=== PATIENT | female | born 1955 | race Caucasian/White ===

== ENCOUNTER 2019-09-19 06:58 | Day surgery (SDC) | payer OTHER ==
--- NOTE | 2019-09-16 11:23 | RAD REPORT ---
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 COMPARISON: CHEST SINGLE VIEW dated 11/08/2015; CHEST SINGLE VIEW dated 02/12/2011 FINDINGS: Small calcified granuloma is present in the left upper lobe laterally. The lungs are emphy sematous. The heart is upper limit of normal in size. No displaced fractures. IMPRESSION: Mild COPD.
[2019-09-16 11:35] LABS: Absolute Lymphocytes (CBC) 1.1 K/uL (0.7-4.9); Basophils % 0.5 % (0-1.3); Hematocrit 36.9 % (36.0-45.0); Lymphocytes % 11.7 % (15.3-44.8); RBC Red Blood Cell Count 3.78 M/uL (3.86-4.86)
[2019-09-16 11:40] LABS: Potassium 4.7 mmol/L (3.5-5.1)
[2019-09-16 11:54] LABS: Protime INR 0.85
--- OUTSIDE RECORDS SUMMARY | 2019-09-19 07:00 | XMS REPORT ---
:1955 [facility] Address [address] [place] [address] Dr. Gomez [address] [place] [id number] Care Team Providers Name Role Phone Unavailable Unavailable Unavailable Problems This patient has no known problems. Allergies, Adverse Reactions, Alerts This patient has no known allergies or adverse reactions. Medications This patient has no known medications.
[2019-09-19] MEDS ORDERED: HEPA 1000U/500MLS 2,000 UNIT/1,000 ML BAG IV ONE (07:07)
[2019-09-19] MEDS ORDERED: LIDOCAINE 1% MPF 30 ML VIAL ONE (07:07)
[2019-09-19] MEDS ORDERED: NA CHLORIDE 0.9% 500 ML ONE (07:21)
[2019-09-19] MEDS ORDERED: MIDAZOLAM HCL 2 MG/2 ML INJ ONE ×3 (07:51→08:14)
[2019-09-19] MEDS ORDERED: HEPARIN 5000 UNIT/ML 1 ML VIAL ONE (07:51)
[2019-09-19] MEDS ORDERED: NITROGLYCERIN/D5W 25 MG/250 ML BTL IV ONE (07:52)
[2019-09-19] MEDS ORDERED: NA CHLORIDE 0.9% 0 ML ONE (07:52)
[2019-09-19] MEDS ORDERED: NITROGLYCERIN 100 MCG/ML SYR (for cath lab use only) IV ONE (07:52)
[2019-09-19] MEDS ORDERED: NICARDIPINE HCL 25 MG/10 ML IV ONE (07:52)
[2019-09-19] MEDS ORDERED: FENTANYL CITR 100 MCG/2 ML ONE (07:52)
[2019-09-19] MEDS ORDERED: ATROPINE SULF 1 MG/10 ML SYR IV ONE (07:52)
--- NOTE | 2019-09-19 09:59 | OP ---
Surgeon: Vinnie Corbin MD Procedures: Left heart catheterization with coronary left ventricular angiography. Indication: History of right coronary stent with ischemia of the inferior wall on a stress test. 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 There is HEATHER grade 3 collateral flow that comes from the left coronary, several different places, both obtuse marginal, di agonal, the LAD, all 3 of them gave collaterals to the right. Her left ventricular ejection fraction is normal. Her left ventricular end-diastolic pressure was 17 slightly elevated and her systolic bl ood pressure at the end of the case was 153, so she has systolic hypertension. Our plan is for medic al therapy and smoking cessation. Procedure In Detail: The patient was brought to the cardiac laborer operator in a fasting state, sedated wit h Versed and fentanyl. Prepared and draped in usual sterile fashion. Right radial approach was used . Tissues around the right radial artery were anesthetized with 1% lidocaine. The artery was then e ntered using a 21-gauge needle, cannulated with a 0.021 inch diameter guidewire. Modified Seldinger technique was then used to place a 5/6-[place] Terumo radial sheath. The introducer and wire removed and the sheath was flushed. Radial cocktail was given consisting of nicardipine, heparin, nitroglyce rin. We guided a TIG catheter into the ascending aorta using fluoroscopy and a short radius J-tip Gl idewire, used a TIG catheter to angiogram left ventricle, left coronary, right coronary. At the end of the procedure, the catheter was removed with a guidewire straight in and out. The sheath was removed and the arteriotomy was closed with a TR band. MARY/TIARA Voice ID: [id number] Report ID: [id number]
[2019-09-19 10:32] VITALS: TEMP 98
[2019-09-19 10:52] VITALS: O2SAT 96
[2019-09-19 11:35] VITALS: BP 142/76
== END 2019-09-19 11:25 | disposition home or self-care (01) ==
LOC: CCL 06:58
PROVIDERS: ATTEND Internal Medicine
DX: I25.118 Atherosclerotic heart disease of native coronary artery with other forms of angina pectoris (principal); I25.82 Chronic total occlusion of coronary artery; I65.23 Occlusion and stenosis of bilateral carotid arteries; I10 Essential (primary) hypertension; E78.5 Hyperlipidemia, unspecified; E11.9 Type 2 diabetes mellitus without complications; Z95.5 Presence of coronary angioplasty implant and graft; Z79.02 Long term (current) use of antithrombotics/antiplatelets; F17.200 Nicotine dependence, unspecified, uncomplicated; Z88.6 Allergy status to analgesic agent; Z91.040 Latex allergy status; Z85.44 Personal history of malignant neoplasm of other female genital organs; Z90.710 Acquired absence of both cervix and uterus
CPT/HCPCS: 85025; 80048; 36415; 85610; 82947; 85730; 71046; 93458; C1893; J1644; J2250 ×2; J3010; J7040; J0583

== ENCOUNTER 2022-05-20 02:41 | Emergency (ER) | payer OTHER ==
--- OUTSIDE RECORDS SUMMARY | 2022-05-20 02:46 | XMS REPORT | Continuity of Care Document ---
:1955 Author Organization [facility] t Address [address] [place] [address] Care Team Providers Name Role Phone Ayad Davila Primary Care Physician Nicol Kauffman MD Attending Clinician Doctor Unassigned, [place] Attending Clinician Unavailable Kerrie Frausto PA-C Attending Clinician CLARKE BARAHONA Attending Clinician Unavailable KATRIN PAULINO Admitting Clinician Unavailable Payers Payer Name Policy Type Policy Number Effective Date Expiration Date S ource Problems Condition Condition Condition Status Onset Resolution Last Treating Co mments Source Name Details Category Date Date Treatment Clinician Date Positive Positive Disease Active Overview: Un ella colorectal colorectal 8-10 Formattin ity of cancer cancer 00:00: g of this [place] screening screening 00 note Medi taran using using might be Branch Cologuard Cologuard different test test from the original. Added automatic ally from request for surgery [id number] Problem Problem Disease Active Univers 3-29 ity of 00:00: [place] 00 Medical Branch PAD PAD Disease Active Univers (periphera (periphera 4-01 it y of l artery l artery 00:00: [place] disease) disease) 00 Medica l Branch Radial Radial Disease Active [facility]04 [facility] thrombosis thrombosis 00:00: Me dical 00 Center CKD CKD Disease Active [facility] (chronic (chronic 2-04 [facility] kidney kidney 00:00: Medical disease) disease) 00 Center stage 3, stage 3, GFR 30-59 GFR 30-59 ml/min ml/min Obesity Obesity Disease Active Univers 1-25 ity of 00:00: [place] [facility] Hyperlipem Hyperlipem Disease Active U nivers ia ia 1- ity of 00:00: [place] [facility] History of History of Disease Active U nivers SCC SCC 1-25 ity of (squamous (squamous 00:[place] cell cell 00 Medical carcinoma) carcinoma) Br anch of skin of skin Lung Lung Disease Active Univers nodules nodules 11-19 ity of 00:00: [place] [facility] 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 00:00[place] vagina of vagina 00 [facility] Branch Tobacco Tobacco Disease Active Univers use use 11-21 ity of disorder disorder 00:00: [place] [facility] Lump or Lump or Disease Active Univers mass in mass in 11-21 ity of breast breast 00:00: [place] [facility] Stroke Stroke Disease Active Univers 3 ity of 00:00: [place] [facility] Essential Essential Disease Active Uni vers hypertensi hypertensi 11-21 it y of on, benign [place], benign [place] [facility] Type 2 Type 2 Disease Active Univers diabetes diabetes 11-21 ity of mellitus mellitus 00:00: [place] 00 [facility] Status Status Disease Active Univers post post 01-22 ity of carotid carotid 00:00: [place] endarterec endarterec 00 Me dical bob bob Branch 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 00:00: [place] 00 Medical Branch DM type 2 DM type 2 Disease Active Uni vers causing causing 01-19 ity of neurologic neurologic 00:[place] disease al disease 00 Me dical Branch 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 01-19 ity of hemiparesi hemiparesi 00:00[place] Branch Carotid Carotid Disease Active Univers artery artery 01-17 ity of occlusion occlusion 00:[place] with with 00 Medical cerebral cerebral Branch infarction infarction Carotid Carotid Disease Active Univers occlusion, occlusion, 5-27 it y of left left 00:00: [place] 00 Medical Branch Carotid Carotid Disease Active Univers stenosis, stenosis, 5-27 ity of right right 00:00: [place] 00 Medical Branch Allergies, Adverse Reactions, Alerts Allergy Allergy Status Severity Reaction(s) Onset Inactive Treating Comm ents Source Name Type Date Date Clinician CODEINE Allergy Active Hives 2019-[address] [facility] 00:[facility]: Medical 00 Center LATEX Allergy Active Hives 2019-[address] [facility] 00:[facility]: Medical 00 Center Codeine Propensi Active Hives 2020-[address] [facility] ty to 2-04 [facility] adverse 00:00: Medical reaction 00 Center s Latex Propensi Active Hives 2019-[address] [facility] ty to 2-04 [facility] adverse 00:00: Medical reaction 00 Center s Codeine Propensi Active Unknown - Univ ers ty to See comments 06 ity of adverse 00:00: [place] reaction 00 Medical s Branch Latex Propensi Active Rash Univers ty to 4-12 ity of adverse 00:00: [place] reaction 00 Medical s to Branch drug Hydrocod Propensi Active Itching Unive rs one ty to 5-27 ity of adverse 00:00: [place] reaction 00 Medical s Branch Hydrocod Propensi Active Itching 0 Unive rs one-Acet ty to 5-27 ity of aminophe adverse 00:00: [place] n reaction 00 Medical s Branch Social History Social Habit Start Date Stop Date Quantity Comments Source History of tobacco Cigarette Smoker University of use [facility] Exposure to 2022-04-29 2022-05-09 Not sure University of SARS-CoV-2 (event) 00:00:00 09:59:00 [facility] Tobacco use and 2022-03-31 2022-03-31 Smokeless Universit y of exposure 00:00:00 00:00:00 tobacco non-user [facility] dical Branch Cigarettes smoked 2022-03-31 2022-03-31 Univers ity of current (pack per 00:00:00 00:00:00 [place] ) - Reported Branch Cigarette 2022-03-31 2022-03-31 University of pack-years 00:00:00 00:00:00 [facility] Alcohol intake 2019-09-27 2019-09-27 [facility]:00 of [facility] (finding) Sex [birth year] HORTENCIA [place] 00:00:00 00:00:00 [facility] Smoking Status Start Date Stop Date Source Smokes tobacco daily 2022-03-31 00:00:00 Univers ity of [place] [facility] Medications Ordered Filled Start Stop Current Ordering Indication Dosage Frequency Signature Comments Components Source Medication Medication Date Date Medication? Clinician (SIG) Name Name Nitrofurant 2021- Yes [id number] 100mg Take 1 Univers oin&Nit. 9-12 05-25 capsule by ity of Macroc[place] 00:00: 04:59 [place] (MACROBID) 00 :00 the Medical 100 mg morning Branch capsule and 1 capsule in the evening. Do all this for 5 days. estradioL Yes [id number] Apply 1g Univers (ESTRACE) 9-16 vaginally ity o f 0.01 % (0.1 00:00: at bedtime [place] mg/gram) 00 3 times Medical vaginal per week Branch cream ( dn/ ida) mirabegron Yes [id number] 25mg Take 1 Univers (MYRBETRIQ) 9-16 tablet by ity of 25 mg 00:00: mouth in [place] tablet 00 the Medical morning. Branch estradioL Yes [id number] Apply 1g Univers (ESTRACE) 9-16 vaginally ity o f 0.01 % (0.1 00:00: at bedtime [place] mg/gram) 00 3 times Medical vaginal per week Branch cream ( dn/ iday) mirabegron Yes [id number] 25mg Take 1 Univers (MYRBETRIQ) 9-16 tablet by ity of 25 mg 00:00: mouth in [place] tablet 00 the Medical morning. Branch estradioL Yes [id number] Apply 1g Univers (ESTRACE) 6-17 vaginally ity o f 0.01 % (0.1 00:00: at bedtime [place] mg/gram) 00 every Medical vaginal night for Branch cream 2 weeks and then apply 1g vaginally at bedtime 3 times per week ( dn/ iday) mirabegron Yes [id number] 25mg Take 1 U nivers (MYRBETRIQ) 6-17 tablet by ity of 25 mg 00:00: mouth at [place] tablet 00 bedtime. Medical Branch estradioL Yes [id number] Apply 1g Univers (ESTRACE) 6-17 vaginally ity o f 0.01 % (0.1 00:00: at bedtime [place] mg/gram) 00 every Medical vaginal night for Branch cream 2 weeks and then apply 1g vaginally at bedtime 3 times per week (Thursday//) mirabegron Yes [id number] 25mg Take 1 U nivers (MYRBETRIQ) 6-17 tablet by ity of 25 mg 00:00: mouth at [place] tablet 00 bedtime. Medical Branch mirabegron Yes [id number] 25mg Take 1 U nivers (MYRBETRIQ) 5-16 tablet by ity of 25 mg 00:00: mouth at [place] tablet 00 bedtime. Medical Branch mirabegron Yes [id number] 25mg Take 1 U nivers (MYRBETRIQ) 5-16 tablet by ity of 25 mg 00:00: mouth at [place] tablet 00 bedtime. Medical Branch ezetimibe-s Yes 1{tbl} Take 1 Un ella imvastatin 4-12 tablet by ity of 10-40 10-40 14:08: mouth [place] mg tablet 08 every Medical evening. Branch ezetimibe-s Yes 1{tbl} Take 1 Un ella imvastatin 4-12 tablet by ity of 10-40 10-40 14:08: mouth [place] mg tablet 08 every Medical evening. Branch Potassium Yes 1{tbl} Take 1 Univ ers Gluconate 3-25 tablet by ity o f 2.5 mEq Tab 13:42: mouth. [facility] 57 [facility] Potassium Yes 1{tbl} Take 1 Univ ers Gluconate 3-25 tablet by ity o f 2.5 mEq Tab 13:42: mouth. [facility] s 57 [facility] albuterol Yes INHALE 2 Univ ers 90 3-02 PUFFS ity of mcg/actuati 00:00: EVERY 4 Rick as on inhaler 00 HOURS Medical Branch albuterol Yes INHALE 2 Univ ers 90 3-02 PUFFS ity of mcg/actuati 00:00: EVERY 4 [place] as on inhaler 00 HOURS Medical Branch clopidogreL Yes 75mg Take 75 mg Univers 75 mg 2-02 by mouth ity of tablet 14:21: daily. [place] [facility] clopidogreL Yes 75mg Take 75 mg Univers 75 mg 2-02 by mouth ity of tablet 14:21: daily. [place] [facility] POTASSIUM Yes Take by Unive rs ORAL 2-02 mouth. ity of 14:12: [place] [facility] POTASSIUM Yes Take by Unive rs ORAL 2-02 mouth. ity of 14:12: [place] [address] Medical Branch BD INSULIN Yes USE UNDER Un ella PEN NEEDLE 1-14 THE SKIN ity o f UF 31 gauge 00:00: ONCE DAILY [place] x Medical Ndle Branch BD INSULIN Yes USE UNDER Un ella PEN NEEDLE 1-14 THE SKIN ity o f UF 31 gauge 00:00: ONCE DAILY [place] x Medical Ndle Branch citalopram 2019- Yes 10mg Take 10 mg U nivers 10 mg 2-28 by mouth ity of tablet 00:00: daily. [place] [facility] citalopram 2019- Yes 10mg Take 10 mg U nivers 10 mg 2-28 by mouth ity of tablet 00:00: daily. [place] [facility] isosorbide 2019- Yes 30mg Take 30 mg U nivers mononitrate 2-21 by mouth ity of 30 mg 24 hr 00:00: every [place] tablet 00 morning. Medical Branch isosorbide 2019- Yes 30mg Take 30 mg U nivers mononitrate 2-21 by mouth ity of 30 mg 24 hr 00:00: every [place] tablet 00 morning. Medical Branch aspirin 2019-0 Yes 81mg Take 81 mg Univ ers (ADULT LOW 9-17 by mouth ity o f DOSE 10:44: daily. [place] ASPIRIN) 81 07 Medical mg EC Branch tablet aspirin 2019-0 Yes 81mg Take 81 mg Univ ers (ADULT LOW 9-17 by mouth ity o f DOSE 10:44: daily. [place] ASPIRIN) 81 07 Medical mg EC Branch tablet ezetimibe 2020-0 Yes 10mg Take 10 mg Un ella (ZETIA) 10 4-01 by mouth ity o f mg tablet 09:30: daily. [place] [address] Medical Branch lisinopril 2020-0 Yes 20mg Take 20 mg U nivers (PRINIVIL,Z 4-01 by mouth ity of ESTRIL) 20 09:30: daily. [place] mg tablet 29 Medical Branch insulin 2020-0 Yes 23U inject 23 Unive rs glargine 4-01 Units ity of (LANTUS 09:30: under the [place] U-100) 100 29 skin at Medica l unit/mL bedtime. Branch injection atorvastati 2020-0 Yes 40mg Take 40 mg Univers n 40 mg 4-01 by mouth ity of tablet 09:30: at [place] 29 bedtime. Medical Branch ezetimibe 2020-0 Yes 10mg Take 10 mg Un ella (ZETIA) 10 4-01 by mouth ity o f mg tablet 09:30: daily. [place] [address] Medical Branch lisinopril 2020-0 Yes 20mg Take 20 mg U nivers (PRINIVIL,Z 4-01 by mouth ity of ESTRIL) 20 09:30: daily. [place] mg tablet 29 Medical Branch insulin 2020-0 Yes 23U inject 23 Unive rs glargine 4-01 Units ity of (LANTUS 09:30: under the [place] U-100) 100 29 skin at Medica l unit/mL bedtime. Branch injection atorvastati 2020-0 Yes 40mg Take 40 mg Univers n 40 mg 4-01 by mouth ity of tablet 09:30: at [place] [address] bedtime. Medical Branch ALPRAZolam 2020-0 Yes .5mg Q.[id number] Take 0.[address] [facility] (XANAX) 0.5 2-06 [id number] mg by L ukes MG tablet 14:49: 3D mouth 3 Medic al 44 (three) Center times daily . atorvastati 2020-0 Yes 40mg QD Take [address] [facility] n (LIPITOR) 2-06 by mouth Luke s 40 MG 14:49: daily. Medical tablet 44 Center insulin 2020-0 Yes 30U QD Inject 30 [facility] t glargine 2-06 Units [facility]ukes (LANTUS) 14:49: subcutaneo Med ical 100 unit/mL 44 usly Center injection nightly Use as directed . lisinopril 2020-0 Yes 20mg QD Take [address] (PRINIVIL,Z 2-06 by mouth Luke s ESTRIL) 20 14:49: daily. Medic al MG tablet 44 Center magnesium 2020-0 Yes 400mg Q.5D Take [address] oxide 2-06 mg by [facility] (MAG-OX) 14:49: mouth 2 Medica l 400 mg 44 (two) Center (241.3 mg times magnesium) daily . tablet ezetimibe 2020-0 Yes 10mg QD Take [address] (ZETIA) 10 2-06 by mouth [facility] mg tablet 14:49: daily. Medica l 44 Center budesonide- 2020-0 Yes 2{puff} Q.5D Inhale [address] formoterol 2-06 puffs by [facility] (SYMBICORT) 14:49: mouth via M edical 160-4.5 44 inhaler 2 Center mcg/actuati (two) on inhaler times daily. potassium 2020-0 Yes 1{tbl} QD Take [address] gluconate 2-06 tablet by [facility] 595 mg (99 14:49: mouth Medica l mg) Tab 44 daily. Center albuterol 2020-0 Yes 2{puff} Inhale [address] HFA 2-06 puffs by [facility] (VENTOLIN 14:49: mouth via Med ical HFA) 90 44 inhaler Center mcg/actuati every 6 on inhaler (six) hours as needed for Wheezing. cholecalcif 2020-0 Yes 1000U Take 1,[address] [facility] carol 2-06 Units by [facility] (VITAMIN 14:49: mouth Medical D3) 25 mcg 44 every 3 Center (1,000 (three) unit) days. tablet VITAMIN B 2018-08 Yes Take by [facility] rs COMPLEX VIT 2-20 mouth. ity of C NO.4 09:56: [place] ([facility] B 47 Medical COMPLEX + C Branch ORAL) ubidecareno 2018-08 Yes Take by [facility] vers ne (CO Q-10 2-20 mouth. ity of ORAL) 09:56: [place] [address] Medical Branch neomycin-po 2018- Yes .5[in_u 0.5 Inches Univers lymyxin-dex 2-20 s] 4 (four) ity of amethasone 09:56: times [place] (MAXITROL) 47 daily. Medical 3.5-10,000- Branch 0.1 mg-unit/g-% ophthalmic ointment magnesium 2018-08 Yes Take by Unive rs oxide 400 2-20 mouth. ity of mg capsule 09:56: [address] cholecalcif 2018-08 Yes 1000U Take 1,000 Univers carol, 2-20 Units by ity of vitamin D3, 09:56: mouth [place] 1,000 unit 47 daily. Medical tablet Branch KRILL OIL 2018-08 Yes 300mg Take 300 Uni vers ORAL 2-20 mg by ity of 09:56: mouth. [address] Branch VITAMIN B 2018- Yes Take by Unive rs COMPLEX VIT 2-20 mouth. ity of C NO.4 09:56: [place] ([facility] B Medical COMPLEX + C Branch ORAL) ubidecareno 2018-08 Yes Take by Uni vers ne (CO Q-10 2-20 mouth. ity of ORAL) 09:56: [address] neomycin-po 2018-08 Yes .5[in_u 0.5 Inches Univers lymyxin-dex 2-20 s] 4 (four) ity of amethasone 09:56: times [place] (MAXITROL) 47 daily. Medical 3.5-10,000- Branch 0.1 mg-unit/g-% ophthalmic ointment magnesium 2018-08 Yes Take by Unive rs oxide 400 2-20 mouth. ity of mg capsule 09:56: [address] cholecalcif 2018-08 Yes 1000U Take 1,000 Univers carol, 2-20 Units by ity of vitamin D3, 09:56: mouth [place] 1,000 unit 47 daily. Medical tablet Branch KRILL OIL 2018-08 Yes 300mg Take 300 Uni vers ORAL 2-20 mg by ity of 09:56: mouth. [address] ALPRAZolam 2018-08 Yes .5mg Take 0.5 Uni vers (XANAX) 0.5 2-20 mg by ity of mg tablet 09:56: mouth 3 [place] [address] (three) Medical times [place] daily as needed for Other (anxiety). ALPRAZolam 2018-08 Yes .5mg Take 0.5 Uni vers (XANAX) 0.5 2-20 mg by ity of mg tablet 09:56: mouth 3 [place] 46 (three) Medical times Branch daily as needed for Other (anxiety). traMADoL-ac Yes Q4H PRN Uni vers etaminophen 1-17 For Pain ity of 37.5-325 mg 00:00: [place] per tablet 00 Medical Branch ciprofloxac Yes TWICE Unive rs in HCl 1-17 DAILY ity of (CIPRO) 500 00:00: [place] mg tablet 00 Medical Branch dextrose 10 Yes DAILY Unive rs % in water 1-17 ity of (D10W 0.9% 00:00: [place] NACL, NS,) 00 Medical IV infusion Branch traMADoL-ac Yes Q4H PRN Uni vers etaminophen 1-17 For Pain ity of 37.5-325 mg 00:00: [place] per tablet 00 Medical Branch dextrose 10 Yes DAILY Unive rs % in water 1-17 ity of (D10W 0.9% 00:00: [place] NACL, NS,) 00 Medical IV infusion Branch ciprofloxac 2021- No TWICE Univ ers in HCl 1-17 -19 DAILY ity of (CIPRO) 500 00:00: 00:00 [place] mg tablet 00 :00 Medical Branch budesonide- Yes 2{puff} Inhale 2 Univers formoteroL 1-16 Puffs. ity of 160-4.5 00:00: [place] mcg/actuati 00 Medical on inhaler Branch metFORMIN Yes TWICE Univers 1,000 mg 1-16 DAILY ity of tablet 00:00: [place] 00 Medical Branch varenicline Yes .5{tbl} 0.5 Uni vers 1 mg tablet 1-16 tablets. ity of 00:00: [place] 00 Medical Branch MULTIVITAMI Yes DAILY Unive rs N ORAL 1-16 ity of 00:00: [place] 00 Medical Branch krill-omega Yes DAILY Unive rs -3-dha-epa- -16 ity of lipids 00:00: [place] 300-90-24-5 00 Medical 0 mg Cap Branch ferrous Yes DAILY Univers fumarate/vi 1-16 ity of t C/vit B1 00:00: [place] (FERROUS 00 Medical FUMARATE- Branch T B1-VIT C ORAL) ALBUTEROL Yes EVERY 6 Unive rs SULFATE 1-16 HOURS ity of INHALE 00:00: NEEDED PRN For short Medical of breath Branch budesonide- Yes 2{puff} Inhale 2 Univers formoteroL 1-16 Puffs. ity of 160-4.5 00:00: [place] mcg/actuati 00 Medical on inhaler Branch metFORMIN Yes TWICE Univers 1,000 mg 1-16 DAILY ity of tablet 00:00: [place] 00 Medical Branch varenicline Yes .5{tbl} 0.5 Uni vers 1 mg tablet 1-16 tablets. ity of 00:00: [place] 00 Medical Branch MULTIVITAMI Yes DAILY Unive rs N ORAL 1-16 ity of 00:00: [place] 00 Medical Branch krill-omega Yes DAILY Unive rs -3-dha-epa- 1-16 ity of lipids 00:00: [place] 300-90-24-5 00 Medical 0 mg Cap Branch ferrous Yes DAILY Univers fumarate/vi 1-16 ity of t C/vit B1 00:00: [place] (FERROUS 00 Medical FUMARATE- Branch T B1-VIT C ORAL) ALBUTEROL Yes EVERY 6 Unive rs SULFATE 1-16 HOURS ity of INHALE 00:00: NEEDED PRN For short Medical of breath Branch Immunizations Ordered Filled Immunization Date Status Comments [facility] e Immunization Name Name SARS-COV-2 COVID-19 2021-07-23 Completed Unive rsity of PFIZER VACCINE 00:00:00 [facility] SARS-COV-2 COVID-19 2021-07-23 Completed Unive rsity of PFIZER VACCINE 00:00:00 [facility] SARS-COV-2 COVID-19 2020-11-30 Completed Unive rsity of PFIZER VACCINE 00:00:00 [facility] SARS-COV-2 COVID-19 2020-11-30 Completed Unive rsity of PFIZER VACCINE 00:00:00 [facility] SARS-COV-2 COVID-19 2020-11-09 Completed Unive rsity of PFIZER VACCINE 00:00:00 [facility] SARS-COV-2 COVID-19 2020-11-09 Completed Unive rsity of PFIZER VACCINE 00:00:00 [facility] Vital Signs Vital Name Observation Time Observation Value Comments Source Systolic blood 2022-05-09 15:27:00 159 mm[Hg] Univer sity of pressure [facility] Diastolic blood 2022-05-09 15:27:00 81 mm[Hg] Unive rsity of [facility] Heart rate 2022-05-09 15:27:00 81 /min [facility] Body temperature 2022-05-09 15:27:00 36.5 Trish [facility] Respiratory rate 2022-05-09 15:27:00 18 /min [facility] Body height 2022-05-09 15:27:00 152.4 cm [facility] Body weight 2022-05-09 15:27:00 70.308 kg [facility] BMI 2022-05-09 15:27:00 30.27 kg/m2 [facility] Procedures Procedure Date / Time Performed Performing Clinician Sourc e POCT URINALYSIS W/O 2022-05-09 15:28:00 Nicol Kauffman [facility] SPECIFIC GRAVITY [facility] Plan of Care Planned Activity Planned Date Details Comments Source Future Scheduled 2022-04-24 INFLUENZA VACCINE (#1) [facility] 00:00:00 [code = INFLUENZA Medical Ce nter VACCINE (#1)] Future Scheduled 2021-08-[address] [facility] Test 00:00:00 (12+) [code = Medical Center DEPRESSION SCREENING (12+)] Future Scheduled 2021-08-24 FALLS RISK SCREENING [facility] Test 00:00:00 [code = FALLS RISK Medical C enter SCREENING] Future Scheduled 2018-08-[address] [facility] Test 00:00:00 WELLNESS (YEAR 2 or Medical Center FIRST YEAR if no IPPE) [code = MEDICARE ANNUAL WELLNESS (YEAR 2 or FIRST YEAR if no IPPE)] Future Scheduled 2005 SHINGLES VACCINES ([address] [facility] Test 00:00:00 2) [code = SHINGLES Medical Center VACCINES (1 of 2)] Future Scheduled 1974 DTAP/TDAP/TD VACCINES [facility] 00:00:00 (1 - Tdap) [code = Medical C enter DTAP/TDAP/TD VACCINES (1 - Tdap)] Future Scheduled 1973 HEPATITIS C SCREENING [facility] 00:00:00 [code = HEPATITIS C Medical Center SCREENING] Future Scheduled 1961 PNEUMOCOCCAL 65+ YRS ([address] [facility] Test 00:00:00 - PCV) [code = Medical Cente r PNEUMOCOCCAL 65+ YRS (1 - PCV)] Future Scheduled 1955 COVID-19 VACCINE (#1) [facility] Test 00:00:00 [code = COVID-[address] VACCINE (#1)] Future Scheduled 1955 CT Colonography (combo) [facility] Test 00:00:00 [code = CT Colonography [facility] (combo)] Future Scheduled 1955 Screening for malignant [facility] Test 00:00:00 neoplasm of colon Medical Ce nter (procedure) [code = 110232867] Future Scheduled 1955 Screening for malignant [facility] Test 00:00:00 neoplasm of colon Medical Ce nter (procedure) [code = 401263648] Future Scheduled 1955 DXA SCAN [code = DXA [facility] Test 00:00:00 SCAN] [facility] Future Scheduled 1955 Screening for malignant [facility] Test 00:00:00 neoplasm of colon Medical Ce nter (procedure) [code = 641350327] Future Scheduled 1955 Screening for malignant [facility] Test 00:00:00 neoplasm of colon Medical Ce nter (procedure) [code = 320434657] Future Scheduled 1955 Sigmoidoscopy [code = [facility] Test 00:00:00 Sigmoidoscopy] Medical Cente r Future Scheduled 1955 Screening for malignant [facility] Test 00:00:00 neoplasm of breast Medical C enter (procedure) [code = 855016199] Encounters Start End Encounter Admission Attending Care Care Encounter Source Date/Time Date/Time Type Type Clinicians Facility Department ID 2022-05-12 2022-05-12 NICK Bro [id number] Univers 00:00:00 00:00:00 Nicol EVERETT [id number] linda [id number] [phone] In dical NAL 098 [facility] 2022-05-09 2022-05-09 Office [facility] [id number] Univers 10:30:00 11:14:47 Visit Nicol EVERETT [id number] i ty of [facility] [id number] [id number] In dical NAL 8 [facility] 2020-09-10 2020-09-10 Orders Doctor [facility] [id number] 00:00:00 00:00:00 Only Unassigned, HARISH [id number] [place] [facility] [id number] [id number] 2020-06-27 2020-06-27 Telephone [facility] [id number] 00:00:00 00:00:00 Kerrie Kiddton [id number] [place] [id number] Professio [id number] [address] 2020-05-10 2020-05-10 Office [facility] [id number] 10:23:58 16:40:10 Visit Kerrie Everett [id number] [place] [id number] Professio [phone] [address] 2020-05-10 2020-05-10 Orders Doctor [facility] [id number] 00:00:00 00:00:00 Only Unassigned, HARISH [id number] [place] [facility] [id number] Results Test Description Test Time Test Comments Results Result Comments Source POCT URINALYSIS W/O SPECIFIC GRAVITY 2022-05-09 15:29:00 Test Item Value Reference Range Interpretation Comme nts POCT PH U (test code = 3254) 5 mg/dl 5-8 POCT U LEUK EST (test code = 3263) ++ Negative - Negative POCT U NIT (test code = 3262) positive Negative - Negative POCT U PROT (test code = 3259) Negative - Negative POCT U GLU (test code = 3256) negative Negative - Negative POCT U KETONE (test code = 3258) negaitve Negative - Negative POCT U BLD (test code = 3257) negative Negative - Negative SAMMY (test code = SAMMY) [facility]vr- 5 [facility] [id number] 07:46:00 Test Item Value Reference Range Interpretation Comments POC-GLUCOSE METER 236 mg/dL 70-110 H : TESTED A T BSC 6720 (BEAKER) (test code = NAYELI Narvaez [facility], 1538) 29962: Assistant Vice President/Techni anamaria ID = [id number] for BRUNO VEE BASIC METABOLIC [id number] 04:41:00 Test Item Value Reference Range Interpretation Comments SODIUM (BEAKER) 136 meq/L 136-145 (test code = 381) POTASSIUM (BEAKER) 4.6 meq/L 3.5-5.1 (test code = 379) CHLORIDE (BEAKER) 105 meq/L 98-107 (test code = 382) CO2 (BEAKER) (test 26 meq/L 22-29 code = 355) BLOOD UREA NITROGEN 23 mg/dL 7-21 H (BEAKER) (test code = 354) CREATININE (BEAKER) 1.18 mg/dL 0.57-1.25 (test code = 358) GLUCOSE RANDOM 223 mg/dL 70-105 H (BEAKER) (test code = 652) CALCIUM (BEAKER) 9.5 mg/dL 8.4-10.2 (test code = 697) EGFR (BEAKER) (test 46 mL/min/1.73 ESTIMA JASMYNE GFR IS code = 1092) sq m NOT ACCURATE CREATININE CLEARANCE IN PREDICTING GLOMERULAR FILTRATION RATE . ESTIMATED GFR I S NOT APPLICABLE FOR DIALYSIS PATIEN TS. Assistant Vice President ID - PIAYA LCBC W/PLT COUNT & AUTO [id number] 04:20:00 Test Item Value Reference Range Interpretation Comments WHITE BLOOD CELL COUNT (BEAKER) 4.9 K/ L 3.5-10.5 (test code = 775) RED BLOOD CELL COUNT (BEAKER) 3.34 M/ L 3.93-5.22 L (test code = 761) HEMOGLOBIN (BEAKER) (test code = 10.7 GM/DL 11.2-15.7 L 410) HEMATOCRIT (BEAKER) (test code = 33.8 % 34.1-44.9 L 411) MEAN CORPUSCULAR VOLUME (BEAKER) 101.2 fL 79.4-94.8 H (test code = 753) MEAN CORPUSCULAR HEMOGLOBIN 32.0 pg 25.6-32.2 (BEAKER) (test code = 751) MEAN CORPUSCULAR HEMOGLOBIN CONC 31.7 GM/DL 32.2-35.5 L (BEAKER) (test code = 752) RED CELL DISTRIBUTION WIDTH 13.6 % 11.7-14.4 (BEAKER) (test code = 412) PLATELET COUNT (BEAKER) (test 275 K/CU MM 150-450 code = 756) MEAN PLATELET VOLUME (BEAKER) 9.2 fL 9.4-12.3 L (test code = 754) NUCLEATED RED BLOOD CELLS 0 /100 WBC 0-0 (BEAKER) (test code = 413) NEUTROPHILS RELATIVE PERCENT 63 % (BEAKER) (test code = 429) LYMPHOCYTES RELATIVE PERCENT 26 % (BEAKER) (test code = 430) MONOCYTES RELATIVE PERCENT 9 % (BEAKER) (test code = 431) EOSINOPHILS RELATIVE PERCENT 2 % (BEAKER) (test code = 432) BASOPHILS RELATIVE PERCENT 0 % (BEAKER) (test code = 437) NEUTROPHILS ABSOLUTE COUNT 3.06 K/ L 1.56-6.13 (BEAKER) (test code = 670) LYMPHOCYTES ABSOLUTE COUNT 1.27 K/ L 1.18-3.74 (BEAKER) (test code = 414) MONOCYTES ABSOLUTE COUNT (BEAKER) 0.45 K/ L 0.24-0.36 H (test code = 415) EOSINOPHILS ABSOLUTE COUNT 0.09 K/ L 0.04-0.36 (BEAKER) (test code = 416) BASOPHILS ABSOLUTE COUNT (BEAKER) 0.02 K/ L 0.01-0.08 (test code = 417) IMMATURE GRANULOCYTES-RELATIVE 0 % 0-1 PERCENT (BEAKER) (test code = 2801) POCT-GLUCOSE [id number] 20:35:00 Test Item Value Reference Range Interpretation Comments POC-GLUCOSE METER 328 mg/dL 70-110 H : TESTED A T [facility] 6720 (BEAKER) (test code = [facility], 1538) [address]: Assistant Vice President/Techni anamaria ID = [id number] for BG HOPPERA POCT-GLUCOSE [id number] 16:38:00 Test Item Value Reference Range Interpretation Comments POC-GLUCOSE METER 214 mg/dL 70-110 H : TESTED A T [facility] 6720 (BEAKER) (test code = [facility], [facility]8) [address]: Assistant Vice President/Techni anamaria ID = [id number] for IAN PARRAA POCT-GLUCOSE [id number] 14:51:00 Test Item Value Reference Range Interpretation Comments POC-GLUCOSE METER 260 mg/dL 70-110 H : TESTED A T [facility] 6720 (BEAKER) (test code = [facility], [facility]8) [address]: Assistant Vice President/Techni anamaria ID = [id number] for SHERYL NERI POCT-GLUCOSE [id number] 12:16:00 Test Item Value Reference Range Interpretation Comments POC-GLUCOSE METER 219 mg/dL 70-110 H : TESTED A T [facility] 6720 (BEAKER) (test code = [facility], [facility]8) [address]: Assistant Vice President/Techni anamaria ID = [id number] for GLORIA PARRA HEMOGLOBIN [id number] 08:24:00 Test Item Value Reference Range Interpretation Comments HEMOGLOBIN A1C (BEAKER) (test code = 10.3 % 4.3-6.1 H 368) POCT-GLUCOSE [id number] 07:25:00 Test Item Value Reference Range Interpretation Comments POC-GLUCOSE METER 260 mg/dL 70-110 H : TESTED A T [facility] 6720 (BEAKER) (test code = [facility], [facility]) [id number]: Assistant Vice President/Techni anamaria ID = [id number] for GLORIA PARRA LIPID [id number] 02:52:00 Test Item Value Reference Range Interpretation Comments TRIGLYCERIDES (BEAKER) (test code = 213 mg/dL 540) CHOLESTEROL (BEAKER) (test code = 167 mg/dL 631) HDL CHOLESTEROL (BEAKER) (test code 48 mg/dL = 976) LDL CHOLESTEROL CALCULATED (BEAKER) 76 mg/dL (test code = 633) Triglyceride Reference Range: Low Risk <150 Borderline 150-199 High Risk 200- 499 Very High Risk >=500Cholesterol Reference Range: Low Risk <200 Borderline 200-239 High Risk >240HDL Cholesterol Reference Range: Low Risk >=60 High Risk <40LDL Cholesterol Reference Range: Optimal <100 Near Optimal 100-129 Borderline 130-159 High 160-189 Very High >=190 Assistant Vice President ID - ROLA MBASIC METABOLIC [id number] 02:52:00 Test Item Value Reference Range Interpretation Comments SODIUM (BEAKER) 136 meq/L 136-145 (test code = 381) POTASSIUM (BEAKER) 4.2 meq/L 3.5-5.1 (test code = 379) CHLORIDE (BEAKER) 105 meq/L 98-107 (test code = 382) CO2 (BEAKER) (test 23 meq/L 22-29 code = 355) BLOOD UREA NITROGEN 26 mg/dL 7-21 H (BEAKER) (test code = 354) CREATININE (BEAKER) 1.27 mg/dL 0.57-1.25 H (test code = 358) GLUCOSE RANDOM 259 mg/dL 70-105 H (BEAKER) (test code = 652) CALCIUM (BEAKER) 8.9 mg/dL 8.4-10.2 (test code = 697) EGFR (BEAKER) (test 42 mL/min/1.73 ESTIMA JASMYNE GFR IS code = 1092) sq m NOT ACCURATE CREATININE CLEARANCE IN PREDICTING GLOMERULAR FILTRATION RATE . ESTIMATED GFR I S NOT APPLICABLE FOR DIALYSIS PATIEN TS. Assistant Vice President ID - ROLA [id number] 02:41:00 Test Item Value Reference Range Interpretation Comments PARTIAL THROMBOPLASTIN TIME 45.8 seconds 22.5-36.0 H (BEAKER) (test code = 760) 6 hours after starting heparin infusion and as indicated per sliding scaleCBC W/PLT COUNT & AUTO [id number] 02:29:00 Test Item Value Reference Range Interpretation Comments WHITE BLOOD CELL COUNT (BEAKER) 6.0 K/ L 3.5-10.5 (test code = 775) RED BLOOD CELL COUNT (BEAKER) 3.00 M/ L 3.93-5.22 L (test code = 761) HEMOGLOBIN (BEAKER) (test code = 10.0 GM/DL 11.2-15.7 L 410) HEMATOCRIT (BEAKER) (test code = 29.6 % 34.1-44.9 L 411) MEAN CORPUSCULAR VOLUME (BEAKER) 98.7 fL 79.4-94.8 H (test code = 753) MEAN CORPUSCULAR HEMOGLOBIN 33.3 pg 25.6-32.2 H (BEAKER) (test code = 751) MEAN CORPUSCULAR HEMOGLOBIN CONC 33.8 GM/DL 32.2-35.5 (BEAKER) (test code = 752) RED CELL DISTRIBUTION WIDTH 13.6 % 11.7-14.4 (BEAKER) (test code = 412) PLATELET COUNT (BEAKER) (test 244 K/CU MM 150-450 code = 756) MEAN PLATELET VOLUME (BEAKER) 9.4 fL 9.4-12.3 (test code = 754) NUCLEATED RED BLOOD CELLS 0 /100 WBC 0-0 (BEAKER) (test code = 413) NEUTROPHILS RELATIVE PERCENT 65 % (BEAKER) (test code = 429) LYMPHOCYTES RELATIVE PERCENT 24 % (BEAKER) (test code = 430) MONOCYTES RELATIVE PERCENT 9 % (BEAKER) (test code = 431) EOSINOPHILS RELATIVE PERCENT 2 % (BEAKER) (test code = 432) BASOPHILS RELATIVE PERCENT 0 % (BEAKER) (test code = 437) NEUTROPHILS ABSOLUTE COUNT 3.88 K/ L 1.56-6.13 (BEAKER) (test code = 670) LYMPHOCYTES ABSOLUTE COUNT 1.43 K/ L 1.18-3.74 (BEAKER) (test code = 414) MONOCYTES ABSOLUTE COUNT (BEAKER) 0.51 K/ L 0.24-0.36 H (test code = 415) EOSINOPHILS ABSOLUTE COUNT 0.13 K/ L 0.04-0.36 (BEAKER) (test code = 416) BASOPHILS ABSOLUTE COUNT (BEAKER) 0.02 K/ L 0.01-0.08 (test code = 417) IMMATURE GRANULOCYTES-RELATIVE 0 % 0-1 PERCENT (BEAKER) (test code = 2801) POCT-GLUCOSE [id number] 23:31:00 Test Item Value Reference Range Interpretation Comments POC-GLUCOSE METER 307 mg/dL 70-110 H : TESTED A T [facility] 6720 (BEAKER) (test code = [facility] [place], 1538) [address]: Assistant Vice President/Techni anamaria ID = [id number] for SYED, MARINE TTE TSH/FREE T4 IF [id number] 20:53:00 Test Item Value Reference Range Interpretation Comments THYROID STIMULATING HORMONE 2.08 uIU/mL 0.35-4.94 (AKER) (test code = 772) Assistant Vice President ID - NTPTROPONIN [id number] 20:39:00 Test Item Value Reference Range Interpretation Comments TROPONIN I (AKER) (test code = 397) < ng/mL 0.00-0.03 Troponin I (TnI) levels must be interpreted in the context of the presenting symptoms and the clinical findings. Elevated TnI levels indicate myocardial damage, but are not specific for ischemic heart disease. Elevated TnI levels are seen in patients with other cardiac conditions (including myocarditis and congestive heart failure), and slight TnI elevations occur in patients with other conditions, including sepsis, renal failure, acidosis, acute neurological disease, and persistent tachyarrhythmia.Assistant Vice President ID - NTPPOCT-GLUCOSE METER 2019-09-27 19:29:00 Test Item Value Reference Range Interpretation Comments POC-GLUCOSE METER 484 mg/dL 70-110 HH : Notified RN/MD: (ANA) (test code = TESTED AT [facility] 5934 [id number]) [facility], [address]: Assistant Vice President/Techni anamaria ID = [id number] for CA NO, HAIM HEPATIC FUNCTION [id number] 15:47:00 Test Item Value Reference Range Interpretation Comments TOTAL PROTEIN (BEAKER) 6.9 gm/dL 6.0-8.3 Speci men slightly (test code = 770) hemolyzed ALBUMIN (BEAKER) (test 3.7 g/dL 3.5-5.0 Speci men slightly code = 1145) hemolyzed BILIRUBIN TOTAL 0.3 mg/dL 0.2-1.2 Specimen sli ghtly (BEAKER) (test code = hemoly zed 377) BILIRUBIN DIRECT 0.1 mg/dL 0.1-0.5 Specimen sl ightly (BEAKER) (test code = hemoly zed 706) ALKALINE PHOSPHATASE 124 U/L 40-150 (BEAKER) (test code = 346) AST (SGOT) (BEAKER) 24 U/L 5-34 Specimen slightly (test code = 353) hemolyzed ALT (SGPT) (BEAKER) 22 U/L 6-55 Specimen slightly (test code = 347) hemolyzed Assistant Vice President ID - [id number] 15:43:00 Test Item Value Reference Range Interpretation Comments PARTIAL THROMBOPLASTIN TIME 23.6 seconds 22.5-36.0 (BEAKER) (test code = 760) Prior to initiating heparinTROPONIN [id number] 13:36:00 Test Item Value Reference Range Interpretation Comments TROPONIN I (BEAKER) (test code = 397) < ng/mL 0.00-0.03 Troponin I (TnI) levels must be interpreted in the context of the presenting symptoms and the clinical findings. Elevated TnI levels indicate myocardial damage, but are not specific for ischemic heart disease. Elevated TnI levels are seen in patients with other cardiac conditions (including myocarditis and congestive heart failure), and slight TnI elevations occur in patients with other conditions, including sepsis, renal failure, acidosis, acute neurological disease, and persistent tachyarrhythmia.Assistant Vice President ID - NTPB-TYPE NATRIURETIC FACTOR (BNP)2019-09-27 13:36:00 Test Item Value Reference Range Interpretation Comments B-TYPE NATRIURETIC PEPTIDE (BEAKER) 16 pg/mL 0-100 (test code = 700) Assistant Vice President ID - NTPBASIC METABOLIC [id number] 13:35:00 Test Item Value Reference Range Interpretation Comments SODIUM (BEAKER) 132 meq/L 136-145 L (test code = 381) POTASSIUM (BEAKER) 5.5 meq/L 3.5-5.1 H Specimen slightly (test code = 379) hemolyzed CHLORIDE (BEAKER) 99 meq/L 98-107 (test code = 382) CO2 (BEAKER) (test 25 meq/L 22-29 code = 355) BLOOD UREA NITROGEN 26 mg/dL 7-21 H (BEAKER) (test code = 354) CREATININE (BEAKER) 1.49 mg/dL 0.57-1.25 H Specimen slightly (test code = 358) hemolyzed GLUCOSE RANDOM 409 mg/dL 70-105 HH (BEAKER) (test code = 652) CALCIUM (BEAKER) 9.6 mg/dL 8.4-10.2 (test code = 697) EGFR (BEAKER) (test 35 mL/min/1.73 ESTIMA JASMYNE GFR IS code = 1092) sq m NOT ACCURATE CREATININE CLEARANCE IN PREDICTING GLOMERULAR FILTRATION RATE . ESTIMATED GFR I S NOT APPLICABLE FOR DIALYSIS PATIEN TS. Assistant Vice President ID - [id number] 13:29:00 Test Item Value Reference Range Interpretation Comments MAGNESIUM (BEAKER) 1.9 mg/dL 1.6-2.6 Specimen slightly (test code = 627) hemolyzed Assistant Vice President ID - [id number] 13:19:00 Test Item Value Reference Range Interpretation Comments PROTIME (BEAKER) (test code = 11.8 seconds 11.9-14.2 L 759) INR (BEAKER) (test code = 370) 0.9 <=5.9 PARTIAL THROMBOPLASTIN TIME 22.1 seconds 22.5-36.0 L (BEAKER) (test code = 760) Effective 01/19/2019: PT Reference Range ChangeNew: 11.9-14.2 Previous: 11.7- 14.7RECOMMENDED COUMADIN/WARFARIN INR THERAPY RANGESSTANDARD DOSE: 2.0-3.0 Includes: PROPHYLAXIS for venous thrombosis, systemic embolization; TREATMENT for venous thrombosis and/or pulmonary embolus.HIGH RISK: Target INR is 2.5-3.5 for patients wiht mechanical heart valves.CBC W/PLT COUNT & AUTO [id number] 13:10:00 Test Item Value Reference Range Interpretation Comments WHITE BLOOD CELL COUNT (BEAKER) 7.5 K/ L 3.5-10.5 (test code = 775) RED BLOOD CELL COUNT (BEAKER) 3.43 M/ L 3.93-5.22 L (test code = 761) HEMOGLOBIN (BEAKER) (test code = 11.1 GM/DL 11.2-15.7 L 410) HEMATOCRIT (BEAKER) (test code = 33.9 % 34.1-44.9 L 411) MEAN CORPUSCULAR VOLUME (BEAKER) 98.8 fL 79.4-94.8 H (test code = 753) MEAN CORPUSCULAR HEMOGLOBIN 32.4 pg 25.6-32.2 H (BEAKER) (test code = 751) MEAN CORPUSCULAR HEMOGLOBIN CONC 32.7 GM/DL 32.2-35.5 (BEAKER) (test code = 752) RED CELL DISTRIBUTION WIDTH 13.5 % 11.7-14.4 (BEAKER) (test code = 412) PLATELET COUNT (BEAKER) (test 272 K/CU MM 150-450 code = 756) MEAN PLATELET VOLUME (BEAKER) 9.5 fL 9.4-12.3 (test code = 754) NUCLEATED RED BLOOD CELLS 0 /100 WBC 0-0 (BEAKER) (test code = 413) NEUTROPHILS RELATIVE PERCENT 77 % (BEAKER) (test code = 429) LYMPHOCYTES RELATIVE PERCENT 14 % (BEAKER) (test code = 430) MONOCYTES RELATIVE PERCENT 7 % (BEAKER) (test code = 431) EOSINOPHILS RELATIVE PERCENT 1 % (BEAKER) (test code = 432) BASOPHILS RELATIVE PERCENT 0 % (BEAKER) (test code = 437) NEUTROPHILS ABSOLUTE COUNT 5.77 K/ L 1.56-6.13 (BEAKER) (test code = 670) LYMPHOCYTES ABSOLUTE COUNT 1.05 K/ L 1.18-3.74 L (BEAKER) (test code = 414) MONOCYTES ABSOLUTE COUNT (BEAKER) 0.56 K/ L 0.24-0.36 H (test code = 415) EOSINOPHILS ABSOLUTE COUNT 0.10 K/ L 0.04-0.36 (BEAKER) (test code = 416) BASOPHILS ABSOLUTE COUNT (BEAKER) 0.02 K/ L 0.01-0.08 (test code = 417) IMMATURE GRANULOCYTES-RELATIVE 0 % 0-1 PERCENT (BEAKER) (test code = 2801) RAD, CHEST, 1 VIEW, NON [id number] 12:21:00Reason for exam:->SOBFINAL REPORT INDICATION: SOB COMPARISON: None TECHNIQUE: Single frontal view ofthe chest. FINDINGS: Lungs and pleura: Clear lungs. No effusion.Heart and mediastinum: Normal heart size. Unremarkable mediastinal contours.Osseous structures: No acute abnormality.Other: None. IMPRESSION: No acute intrathoracic abnormality. Signed: Nathalia Cardoso MDReport Verified Date/Time: 09/27/2019 12:21:42 Reading Location: [facility] Radiology Reading Room
[2022-05-20] MEDS ORDERED: AMOX/K CLAV 875 MG TAB ONE (03:19)
[2022-05-20] MEDS ORDERED: ACETAMINOPHEN 500 MG TAB ONE (03:19)
--- NOTE | 2022-05-20 04:07 | ER ---
Nurse's Notes [facility] Name: Abril Christopher Age: 66 yrs Sex: Female : 1955 Arrival Date: 05/20/2022 Time: 02:44 Bed 19 Private MD: Diagnosis: Wound of right leg;Pain to right leg;Fall out of bed;Left shoulder pain Presentation: 05/20 02:57 Chief complaint: Patient states: i rolled over too far and rolled off my bed and landed lg3 on my left side but that's not why i wanted to come to the ER. last Thursday my dog ran into my right leg and it hurts any time i touch it or anyone else tries to touch it. denies hitting head or any LOC. Coronavirus screen: Client denies travel out of the [place] in the last 14 days. At this time, the client does not indicate any symptoms associated with coronavirus-19. Ebola Screen: No symptoms or risks identified at this time. Initial Sepsis Screen: Does the patient meet any 2 criteria? No. Patient's initial sepsis screen is negative. Does the patient have a suspected source of infection? No. Patient's initial sepsis screen is negative. Risk Assessment: Do you want to hurt yourself or someone else? Patient reports no desire to harm self or others. Onset of symptoms was May 16, 2022. 02:57 Method Of Arrival: EMS: [facility] lg3 02:57 Acuity: IMELDA 3 lg3 Triage Assessment: 03:06 General: Appears in no apparent distress. comfortable, Behavior is calm, cooperative. lg3 Pain: Complains of pain in right leg Quality of pain is described as crampy, Is intermittent, episodic. EENT: No deficits noted. No signs and/or symptoms were reported regarding the EENT system. Neuro: No deficits noted. Rinaldi Agitation-Sedation Scale (RASS): 0 - Alert and Calm Level of Consciousness is awake, alert, obeys commands, Oriented to person, place, time, situation. Cardiovascular: No deficits noted. Denies chest pain, shortness of breath, Capillary refill < 3 seconds Clubbing of nail beds is absent JVD is absent Patient's skin is warm and dry. Respiratory: No deficits noted. Airway is patent Trachea midline Respiratory effort is even, unlabored, Respiratory pattern is regular, symmetrical, Breath sounds are clear bilaterally. GI: No deficits noted. No signs and/or symptoms were reported involving the gastrointestinal system. Abdomen is round non-distended, obese, Bowel sounds present X 4 quads. Abd is soft and non tender X 4 quads. : No deficits noted. No signs and/or symptoms were reported regarding the genitourinary system. Derm: No deficits noted. Skin is intact, is thin, Skin is dry, Skin is normal, Skin temperature is warm Bruising that is dark purple, yellow, on right leg. Musculoskeletal: No deficits noted. No signs and/or symptoms reported regarding the musculoskeletal system. Circulation, motion, and sensation intact. Range of motion: intact in all extremities, Reports mild left sided deficits from previous stroke. Historical: - Allergies: 03:06 Codeine; itching; lg3 03:06 NIDDM; lg3 03:06 Latex, Natural Rubber; lg3 - Home Meds: 03:06 aspirin 81 mg Oral cap [Active]; Plavix 75 mg Oral tab [Active]; atorvastatin oral lg3 [Active]; Lisinopril Oral [Active]; Zetia Oral [Active]; magnesium oxide 400 mg magnesium Oral cap [Active]; Potassium Chloride Oral [Active]; Xanax Oral [Active]; CoQ-10 oral [Active]; - PMHx: 03:06 Aneurysm; three; Bronchitis; currently on z-josefa; Cancer; [employer]- possible cervical; COPD; lg3 CVA; left arm deficit; High Cholesterol; Hypertension; Diabetes mellitus; TIA; Kidney disease; - PSHx: 03:06 artery; lg3 - Immunization history:: Adult Immunizations up to date, pfizer X3. - Social history:: Smoking status: Patient reports the use of cigarette tobacco products, smokes one pack cigarettes per day. Patient/guardian denies using alcohol, street drugs. Screenin:13 Abuse screen: Denies threats or abuse. Denies injuries from another. Nutritional lg3 screening: No deficits noted. Tuberculosis screening: No symptoms or risk factors identified. Fall Risk None identified. Assessment: 03:13 General: see triage assessment . lg3 Vital Signs: 02:57 BP 126 / 81; Pulse 87; Resp 17 S; Temp 97.9(O); Pulse Ox 98% on R/A; Weight 69.85 kg lg3 (R); Height 5 ft. 2 in. (157.48 cm) (R); Pain 0/10; 02:57 Body Mass Index 28.17 (69.85 kg, 157.48 cm) lg3 ED Course: 02:44 Patient arrived in ED. lg3 02:45 Leela España MD is Attending Physician. sd2 02:57 Radha Corley RN is Primary Nurse. lg3 03:06 Triage completed. lg3 03:06 Arm band placed on right wrist. lg3 03:13 Patient has correct armband on for positive identification. Placed in gown. Bed in low lg3 position. Call light in reach. Side rails up X 1. Client placed on continuous cardiac and pulse oximetry monitoring. NIBP monitoring applied. Door closed. Noise minimized. Warm blanket given. Family accompanied patient. 03:42 Tib Fib Right In Process Unspecified. EDMS 04:31 No provider procedures requiring assistance completed. Patient did not have IV access lg3 during this emergency room visit. Administered Medications: 03:26 Drug: Tylenol 1000 mg Route: PO; lg3 04:33 Follow up: Response: No adverse reaction lg3 03:26 Drug: Augmentin (Amoxicillin-Clavulanate) 875 mg Route: PO; lg3 04:33 Follow up: Response: No adverse reaction lg3 Medication: 04:33 VIS not applicable for this client. lg3 Outcome: 04:07 Discharge ordered by . sd2 04:32 Discharged to home via wheelchair, with family. lg3 04:32 Condition: stable 04:32 Discharge instructions given to patient, Instructed on discharge instructions, follow up and referral plans. medication usage, Demonstrated understanding of instructions, follow-up care, medications, Prescriptions given X 1. 04:34 Patient left the ED. lg3 Signatures: Dispatcher [employer] EDMS Radha Corley RN RN lg3 Leela España MD MD sd2
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
--- NOTE | 2022-05-21 12:12 | RAD REPORT ---
EXAM DESCRIPTION: RAD - Tib Fib Right - 05/20/2022 3:41 am Tib Fib Right 05/20/2022 3:55 AM CDT CLINICAL HISTORY: 66 years, Female, PAIN COMPARISON: None. FINDINGS: 2 X-ray views of the right tibia and fibula (frontal and lateral views) were performed. No acute bony injuries were demonstrated. No gross articular or soft tissue abnormality is identifi ed. There are no gross intraosseous lesions. No periosteal reaction were seen. IMPRESSION: No acute bony injuries were demonstrated. Electronically signed by: Jonnathan Willis MD 05/20/2022 3:55 AM CDT Due to temporary technical issues with the PACS/Fluency reporting system, reports are being signed by the in house radiologists without review as a courtesy to insure prompt reporting. The interpreting radiologist is fully responsible for the content of the report.
[2022-05-22 16:33] VITALS: BP 126/81; TEMP 97.9; O2SAT 98
== END 2022-05-20 04:34 | disposition home or self-care (01) ==
LOC: ER 02:41
DX: S81.801A Unspecified open wound, right lower leg, initial encounter (principal); M25.512 Pain in left shoulder; M79.604 Pain in right leg; W06.XXXA Fall from bed, initial encounter; I10 Essential (primary) hypertension; E11.9 Type 2 diabetes mellitus without complications; F17.210 Nicotine dependence, cigarettes, uncomplicated; Z79.82 Long term (current) use of aspirin; Z79.01 Long term (current) use of anticoagulants; Z88.5 Allergy status to narcotic agent; Z91.018 Allergy to other foods
CPT/HCPCS: 99284

== ENCOUNTER 2023-08-03 15:28 | Emergency (ER) | payer OTHER ==
[2023-08-03] MEDS ORDERED: MUPIROCIN 2% OINT 22GM TUBE TOP ONE (15:48)
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
[2023-08-03 16:01] VITALS: TEMP 98.3; O2SAT 98
[2023-08-03 16:03] VITALS: BP 105/62
== END 2023-08-03 15:54 | disposition home or self-care (01) ==
LOC: ER 15:28
DX: S51.812A Laceration without foreign body of left forearm, initial encounter (principal); V47.6XXA Car passenger injured in collision with fixed or stationary object in traffic accident, initial encounter; Z88.5 Allergy status to narcotic agent; Z91.040 Latex allergy status; F17.210 Nicotine dependence, cigarettes, uncomplicated
CPT/HCPCS: 96372; 99284

== ENCOUNTER 2024-08-08 11:54 | Observation (INO) | payer OTHER ==
[2024-08-08 12:12] LABS: Absolute Basophils 0.1 K/uL (0-0.5); Absolute Eosinophils 0.2 K/uL (0-0.5); Absolute Lymphocytes (CBC) 2.2 K/uL (0.7-4.9); Absolute Monocytes 1.3 K/uL (0.1-1.3); Absolute Neutrophil 13.7 K/uL (1.8-8.0); Basophils % 0.4 % (0-1.3); Eosinophils % 0.9 % (0-4.4); Hematocrit 38.3 % (36.0-45.0); Hemoglobin 12.3 g/dL (12.0-15.0); Lymphocytes % 12.6 % (15.3-44.8); MCHC 32.2 g/dL (32.0-36.0); MCV 102.5 fL (80-100); MPV 7.3 fL (7.6-11.3); Monocytes % 7.5 % (3.3-12.3); Neutrophils % 78.6 % (41.7-73.7); Platelets 405 thou/uL (152-406); RBC Red Blood Cell Count 3.73 M/uL (3.86-4.86); Red Cell Distribution Width 12.9 % (12.1-15.2)
[2024-08-08 12:19] LABS: PT Prothrombin Time 10.2 SECONDS (9.4-12.5); Protime INR 0.91
[2024-08-08 12:37] LABS: ALT/SGPT 26 U/L (13-56); AST/SGOT 18 U/L (15-37); Albumin 3.4 g/dL (3.4-5.0); Albumin/Globulin Ratio 0.9 (1.1-1.8); Alkaline Phosphatase 99 U/L (45-117); Anion Gap 8.3 mEq/L (5.0-15.0); BUN Blood Urea Nitrogen 17 mg/dL (7-18); Bicarbonate 26 mEq/L (21-32); Bilirubin Total 0.4 mg/dL (0.2-1.0); Globulin 3.9 g/dL (2.3-3.5); Glomerular Filtration Rate 53 ml/min (=/>90); Lipase 48 U/L (13-75); Magnesium 2.4 mg/dL (1.6-2.4); NT PRO-BNP 144 pg/mL (<125); Potassium 3.3 mEq/L (3.5-5.1); Protein, Total 7.3 g/dL (6.4-8.2); Sodium Level 140 mEq/L (136-145); Troponin High Sensitivity 9.4 pg/mL (<58.9)
[2024-08-08 12:38] LABS: Bilirubin Direct < 0.2 mg/dL (0-0.2); Bilirubin Indirect, Calculated 0.2 mg/dL (0.2-0.8); Glucose Level 36 mg/dL (74-106)
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
--- NOTE | 2024-08-08 13:42 | RAD REPORT ---
EXAM: CT brain without contrast HISTORY: Dizziness;Pain COMPARISON: MRI brain 09/24/2020 TECHNIQUE: Multiple contiguous axial images were obtained and a CT of the brain without contrast. Sag ittal and coronal reformats were performed. FINDINGS: No evidence of hydrocephalus, intracranial hemorrhage, or extra-axial fluid collection. Areas of encephalomalacia involving the bilateral parietal, right frontal, and left temporal occipit al regions, stable in extent. Mild diffuse parenchymal volume loss. 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 The calvarium is intact. The visualized paranasal sinuses and mastoid air cells are essentially clear . IMPRESSION: No evidence of acute intracranial abnormality. Stable chronic appearing encephalomalacia suggesting sequelae of remote ischemia. 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 EXAM: CT of the cervical spine without contrast HISTORY: Dizziness;Pain COMPARISON: None TECHNIQUE: Multiple contiguous axial images were obtained in a CT of the cervical spine without contr ast. Sagittal and coronal reformats were performed. FINDINGS: The vertebral bodies demonstrate normal height and alignment. No evidence of acute fracture or subluxation.. No degenerative changes are present. No prevertebral soft tissue swelling is seen. The posterior facets are well aligned. Normal alignment of the skull base with the cervical spine is seen. The lung apices show moderate centrilobular emphysematous changes. Lobulated 7-8 mm right apical nodu le incidentally noted. IMPRESSION: No evidence of acute osseous abnormality of the cervical spine. Incidentally noted lobulated right apical 7-8 mm nodule, for which a follow-up CT chest in 6 months i s recommended to ensure stability.
--- NOTE | 2024-08-08 13:56 | EDPHYS ---
Physician Documentation [facility] Name: Abril Christopher Age: 69 yrs Sex: Female : 1955 Arrival Date: 08/08/2024 Time: 11:54 Bed 3 Private MD: ED Physician Tolu Waddell HPI: 08/08 13:45 This 69 yrs old Female presents to ER via EMS with complaints of Low Blood radha Sugar. 13:45 The patient or guardian reports hypoglycemia, that was potentially precipitated by radha wrong dose of medications. Onset: The symptoms/episode began/occurred today. Associated signs and symptoms: Pertinent positives: UNRESPONSIVE. TOOK 40 LANTUS ATE VERY LITTLE. Details of fall: The patient fell from an upright position, while standing. Associated injuries: The patient sustained injury to the head, contusion. The patient presents with confusion, decreased mental status, decreased responsiveness, trouble concentrating. Possible causes: CVA or TIA, low blood sugar. 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 - Infectious Disease History:: Denies. - Social history:: Smoking status: unknown. - Family history:: not pertinent. - History obtained from: , mother, sister, neighbor, EMS, friend, WELL INFORMED. ROS: 13:45 Constitutional: Negative for fever, chills, and weight loss, Eyes: Negative for injury, radha pain, redness, and discharge, ENT: Negative for injury, pain, and discharge, Neck: Negative for injury, pain, and swelling, Cardiovascular: Negative for chest pain, palpitations, and edema, Respiratory: Negative for shortness of breath, cough, wheezing, and pleuritic chest pain, Abdomen/GI: Negative for abdominal pain, nausea, vomiting, diarrhea, and constipation, Back: Negative for injury and pain, : Negative for injury, bleeding, discharge, and swelling, MS/Extremity: Negative for injury and deformity, Skin: Negative for injury, rash, and discoloration, 13:45 Neuro: Positive for altered mental status, weakness, Exam: 13:45 Constitutional: The patient appears in obvious distress, moderately distressed, radha unkempt, 13:45 ECG was reviewed by the Attending Physician. Vital Signs: 12:03 BP 127 / 60; Pulse 81; Resp 18; Temp 97.8; Pulse Ox 99% on R/A; Weight 65.77 kg; Height ph 5 ft. 1 in. ; 12:56 BP 106 / 50; Pulse 74; Resp 18; Pulse Ox 98% on R/A; ph 14:09 BP 137 / 77; Pulse 92; Resp 18; Pulse Ox 98% on R/A; ph 15:00 BP 123 / 78; Pulse 89; Resp 18; Pulse Ox 98% on R/A; ph 16:02 BP 138 / 87; Pulse 87; Resp 18; Temp 97.9; Pulse Ox 98% on R/A; ph 12:03 Body Mass Index 27.40 (65.77 kg, 154.94 cm) ph MDM: 11:56 Medical Screening Exam initiated radha 11:59 Medical Screening Exam initiated radha 13:48 Differential diagnosis: DKA, hypoglycemic episode. Differential Diagnosis altered radha mental status, sepsis, flu. Differential diagnosis: abrasion, closed head injury, contusion, fracture, sprain, strain, CVA, electrolyte abnormality, hypoglycemia, intracranial bleed, overdose, pneumonia, seizure, sepsis, TIA, UTI, volume depletion. Data reviewed: vital signs, nurses notes, EMS record, lab test result(s), EKG, radiologic studies, CT scan, plain films. Consideration of Admission/Observation Patient was admitted/placed on observation. Escalation of care including admission/observation considered. I considered the following discharge prescriptions or medication management in the emergency department Medications were administered in the Emergency Department. See MAR. Independent interpretation of the following test(s) in the Emergency Department EKG: See my EKG interpretation above. Test considered but Not performed: MRI: NO MRI BRAIN. Historians other than the Patient: EMS: EMS ANF FAMILY WELL INFORMED. Care significantly affected by the following chronic conditions: Diabetes, Hypertension, Chronic Obstructive Pulmonary Disease, Cancer, ANEURYSM , BRAIN. Counseling: I had a detailed discussion with the patient and/or guardian regarding the historical points, exam findings, and any diagnostic results supporting the discharge/admit diagnosis, lab results, radiology results, the need for further work-up and treatment in the hospital. Medication response: D50 MUCH IMPROVED. 08/08 11:59 Order name: Basic Metabolic Panel; Complete Time: 13:37 [facility] 08/08 11:59 Order name: CBC with Diff; Complete Time: 13:37 [facility] 08/08 11:59 Order name: LFT's; Complete Time: 13:37 [facility] 08/08 11:59 Order name: Magnesium; Complete Time: 13:37 [facility] 08/08 11:59 Order name: NT PRO-BNP; Complete Time: 13:37 [facility] 08/08 11:59 Order name: PT-INR; Complete Time: 13:37 [facility] 08/08 11:59 Order name: Troponin HS; Complete Time: 13:37 [facility] 08/08 11:59 Order name: Urinalysis w/ reflexes [facility] 08/08 11:59 Order name: Lipase; Complete Time: 13:37 [facility] 08/08 12:01 Order name: glucometer results - FOR PT WITH NO ID; Complete Time: 13:37 08/08 13:43 Order name: Blood Culture Adult (2) [facility] 08/08 13:43 Order name: Lactate w/ 2H reflex if indic. [facility] 08/08 14:33 Order name: Hemoglobin A1c [facility] 08/08 14:33 Order name: Hemoglobin A1c [facility] 08/08 14:56 Order name: Urine Culture [facility] 08/08 15:02 Order name: Basic Metabolic Panel [facility] 08/08 15:02 Order name: Basic Metabolic Panel [facility] 08/08 15:02 Order name: CBC with Automated Diff [facility] 08/08 15:02 Order name: CBC with Automated Diff [facility] 08/08 15:02 Order name: Magnesium [facility] 08/08 15:02 Order name: Magnesium [facility] 08/08 15:02 Order name: Phosphorus [facility] 08/08 15:02 Order name: Phosphorus [facility] 08/08 15:02 Order name: Troponin High Sensitivity [facility] 08/08 15:02 Order name: Troponin High Sensitivity [facility] 08/08 15:02 Order name: Troponin High Sensitivity [facility] 08/08 15:38 Order name: Glucose, Ancillary Testing [facility] 08/08 11:59 Order name: XRAY Chest (1 view) [facility] 08/08 12:21 Order name: Chest Abd Pelvis Wo Con; Complete Time: 13:37 [facility] 08/08 12:22 Order name: Head C Spine Mpr Wo Con; Complete Time: 13:43 [facility] 08/08 11:59 Order name: Cardiac monitoring; Complete Time: 12:09 [facility] 08/08 11:59 Order name: EKG - Nurse/Tech; Complete Time: 12:18 [facility] 08/08 11:59 Order name: IV Saline Lock; Complete Time: 12:01 [facility] 08/08 11:59 Order name: Labs collected and sent; Complete Time: 12:09 [facility] 08/08 11:59 Order name: O2 Per Protocol; Complete Time: 12:09 [facility] 08/08 11:59 Order name: O2 Sat Monitoring; Complete Time: 12:09 [facility] EC:45 Rate is 80 beats/min. Rhythm is regular. QRS [place] is Normal. [place] interval is normal. QRS radha interval is normal. QT interval is normal. No Q waves. T waves are Normal. No ST changes noted. Clinical impression: NSR w/ Non-specific ST/T Changes and No evidence of ischemia. Interpreted by me. Reviewed by me. Administered Medications: 11:55 Drug: D50W IVP 50 ml IVP once; (1 amp) Route: IVP; Site: left antecubital; ph 12:52 Follow up: Response: No adverse reaction ph 12:44 Drug: D5W IV 1000 ml IV at 100 ml/hr continuous Route: IV; Rate: 100 ml/hr; Site: left ph antecubital; 12:51 Follow up: IV SiteChange: right antecubital; IV SiteChange Reason: Infiltration; not ph infiltrated, difficult to flush and catheter not advanced all the way 15:20 Follow up: Response: No adverse reaction; IV Status: Infusion continued upon admission ph 16:03 Follow up: Response: No adverse reaction; IV Status: Infusion continued upon admission ph 15:20 Drug: Rocephin IV 1 grams IV at per protocol once; Given slow IV push per pharmacy ph instructions Route: IV; Rate: per protocol; Site: right antecubital; 16:03 Follow up: Response: No adverse reaction; IV Status: Completed infusion; IV Intake: 50mlph Disposition: 13:56 Critical Care:. radha Disposition Summary: 08/08/24 13:56 Hospitalization Ordered Notes: Hospitalization Status: Inpatient Admission radha Provider: [place], [place] radha Location: Telemetry/MedSurg (Inpatient) radha Condition: Fair radha Problem: new radha Symptoms: have improved radha Bed/Room Type: Standard radha Room Assignment: 401(08/08/24 15:15) bd Diagnosis - Hypoglycemia, unspecified radha - Altered mental status, unspecified radha - Elevated white blood cell count radha - Solitary pulmonary nodule radha - Adverse effect of insulin and oral hypoglycemic [antidiabetic] drugs radha Forms: - Medication Reconciliation Form radha - SBAR form radha - Leadership Thank You Letter radha Critical care time excluding procedures: 13:56 Critical care time: Bedside Care: 30 minutes, Consultation: 10 minutes, Family radha Intervention: 5 minutes. Total time: 45 minutes Signatures: Dispatcher [employer] EDMS Deborah Venegas Corey, MD MD cha Hall, Patricia, RN RN ph Corrections: (The following items were deleted from the chart) 12:00 12:00 BASIC METABOLIC PANEL+C.LAB.BRZ ordered. EDMS EDMS 12:00 12:00 CBC+H.LAB.BRZ ordered. EDMS EDMS 12:00 12:00 HEPATIC FUNCTION+C.LAB.BRZ ordered. EDMS EDMS 12:00 12:00 MAGNESIUM+C.LAB.BRZ ordered. EDMS EDMS 12:00 12:00 PROBNP+C.LAB.BRZ ordered. EDMS EDMS 12:00 12:00 PROTIME (+INR)+COAG.LAB.BRZ ordered. EDMS EDMS 12:00 12:00 Troponin High Sensitivity+C.LAB.BRZ ordered. EDMS EDMS 12:00 12:00 Urinalysis+U.LAB.BRZ ordered. EDMS EDMS 12:00 12:00 LIPASE+C.LAB.BRZ ordered. EDMS EDMS 12:00 12:00 Chest Single View+RAD.RAD.BRZ ordered. EDMS EDMS 12:00 12:00 Head C Spine Cap Wo Con+CT.RAD.BRZ ordered. EDMS EDMS 13:44 13:44 BLOOD CULTURE*+BA.LAB.BRZ ordered. EDMS EDMS 13:44 13:44 LACTATE+C.LAB.BRZ ordered. EDMS EDMS 14:28 13:43 Misc. Order ordered. radha ph 15:15 13:56 radah bd
--- NOTE | 2024-08-08 13:56 | ER ---
Nurse's Notes [facility] Name: Abril Christopher Age: 69 yrs Sex: Female : 1955 Arrival Date: 08/08/2024 Time: 11:54 Bed 3 Private MD: Diagnosis: Hypoglycemia, unspecified;Altered mental status, unspecified;Elevated white blood cell count;Solitary pulmonary nodule;Adverse effect of insulin and oral hypoglycemic [antidiabetic] drugs Presentation: 08/08 12:03 Chief complaint: EMS states: EMS called for a fall, pt did hit her head, pt was ph minimally responsive so checked blood sugar and found to be 24, 1 tube oral glucose given. Coronavirus screen: Vaccine status: Patient reports receiving the 2nd dose of the covid vaccine. Ebola Screen: No symptoms or risks identified at this time. Initial Sepsis Screen: Does the patient meet any 2 criteria? No. Patient's initial sepsis screen is negative. Does the patient have a suspected source of infection? No. Patient's initial sepsis screen is negative. Risk Assessment: Do you want to hurt yourself or someone else? Patient reports no desire to harm self or others. Note Upon arrival to ED finger stick was 31, 1 amp D50 given IVP, pt more responsive, states that her BGL this morning was 177, she took her insulin but did not eat anything afterwards. Onset of symptoms was August 08, 2024. 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 - Infectious Disease History:: Denies. - Social history:: Smoking status: unknown. - Family history:: not pertinent. - History obtained from: , mother, sister, neighbor, EMS, friend, WELL INFORMED. Screenin:26 [facility] ED Fall Risk Assessment (Adult) History of falling in the last 3 months, ph including since admission Yes- physiologic fall (2 pts) Confusion or Disorientation Yes (5 pts) Intoxicated or Sedated No (0 pts) Impaired Gait No (0 pts) Mobility Assist Device Used No (0 pt) Altered Elimination Yes (1 pt) Score/Fall Risk Level 3 or more points = High Risk Oriented to surroundings, Maintained a safe environment, Used ambulatory aids as needed (educated on \T\ assisted with). Abuse screen: Denies threats or abuse. Denies injuries from another. Nutritional screening: No deficits noted. Tuberculosis screening: No symptoms or risk factors identified. Assessment: 12:19 Reassessment: Patient is alert, oriented x 3, equal unlabored respirations, skin aa5 warm/dry/pink. 13:30 Reassessment: Patient appears in no apparent distress at this time. Patient and/or ph family updated on plan of care and expected duration. Pain level reassessed. Patient is alert, oriented x 3, equal unlabored respirations, skin warm/dry/pink. 16:01 Reassessment: Patient appears in no apparent distress at this time. Patient and/or ph family updated on plan of care and expected duration. Pain level reassessed. Patient is alert, oriented x 3, equal unlabored respirations, skin warm/dry/pink. 16:38 Reassessment: Patient appears in no apparent distress at this time. Patient and/or ph family updated on plan of care and expected duration. Pain level reassessed. Patient is alert, oriented x 3, equal unlabored respirations, skin warm/dry/pink. Vital Signs: 12:03 BP 127 / 60; Pulse 81; Resp 18; Temp 97.8; Pulse Ox 99% on R/A; Weight 65.77 kg; Height ph 5 ft. 1 in. ; 12:56 BP 106 / 50; Pulse 74; Resp 18; Pulse Ox 98% on R/A; ph 14:09 BP 137 / 77; Pulse 92; Resp 18; Pulse Ox 98% on R/A; ph 15:00 BP 123 / 78; Pulse 89; Resp 18; Pulse Ox 98% on R/A; ph 16:02 BP 138 / 87; Pulse 87; Resp 18; Temp 97.9; Pulse Ox 98% on R/A; ph 12:03 Body Mass Index 27.40 (65.77 kg, 154.94 cm) ph ED Course: 11:54 Inserted saline lock: 20 gauge in left antecubital area, using aseptic technique. Blood ss collected. Flushed with 10 mL NS. 11:56 Patient arrived in ED. radha 11:59 Tolu Waddell MD is Attending Physician. radha 12:03 Indu Carr, RN is Primary Nurse. ph 12:06 Triage completed. ph 12:07 Arm band placed on Patient placed in an exam room, on a stretcher, on refrigeration supervisor, ph on pulse oximetry. 12:19 EKG done, by ED staff, reviewed by Tolu Waddell MD. aa5 12:34 Chest Abd Pelvis Wo Con In Process Unspecified. EDMS 12:34 Head C Spine Mpr Wo Con In Process Unspecified. EDMS 12:52 IV discontinued, intact, bleeding controlled, No redness/swelling at site. Pressure ph dressing applied. Inserted saline lock: 22 gauge antecubital area, using aseptic technique. Flushed with 10 mL NS. 12:53 Patient has correct armband on for positive identification. Bed in low position. Call ph light in reach. Side rails up X 1. Client placed on continuous cardiac and pulse oximetry monitoring. NIBP monitoring applied. gear straightener on. 13:00 XRAY Chest (1 view) In Process Unspecified. EDMS 13:54 Michelle Lemons is Hospitalizing Provider. radha 14:00 First set of blood cultures drawn by me. kb4 14:15 Second set of blood cultures drawn by me. kb4 14:29 Urine collected: clean catch specimen, clear, cloudy. kb4 14:31 Blood Culture Adult (2) Sent. kb4 14:31 Lactate w/ 2H reflex if indic. Sent. kb4 14:32 Urinalysis w/ reflexes Sent. kb4 16:01 No provider procedures requiring assistance completed. Patient admitted, IV remains in ph place. Administered Medications: 11:55 Drug: D50W IVP 50 ml IVP once; (1 amp) Route: IVP; Site: left antecubital; ph 12:52 Follow up: Response: No adverse reaction ph 12:44 Drug: D5W IV 1000 ml IV at 100 ml/hr continuous Route: IV; Rate: 100 ml/hr; Site: left ph antecubital; 12:51 Follow up: IV SiteChange: right antecubital; IV SiteChange Reason: Infiltration; not ph infiltrated, difficult to flush and catheter not advanced all the way 15:20 Follow up: Response: No adverse reaction; IV Status: Infusion continued upon admission ph 16:03 Follow up: Response: No adverse reaction; IV Status: Infusion continued upon admission ph 15:20 Drug: Rocephin IV 1 grams IV at per protocol once; Given slow IV push per pharmacy ph instructions Route: IV; Rate: per protocol; Site: right antecubital; 16:03 Follow up: Response: No adverse reaction; IV Status: Completed infusion; IV Intake: 50mlph Medication: 12:53 VIS not applicable for this client. ph Intake: 16:03 IV: 50ml; Total: 50ml. ph Outcome: 13:56 Decision to Hospitalize by Provider. radha 16:38 Admitted to Med/surg accompanied by tech, family with patient, via wheelchair, with ph chart, 16:38 Condition: good 16:38 Instructed on the need for admit, 16:39 Patient left the ED. ph Signatures: Dispatcher [employer] EDMS Tolu Waddell MD MD cha Calderon, Audri, RN RN aa5 Meaghan Saunders RN RN ss Indu Carr RN RN ph Gwen Donahue kb4 Corrections: (The following items were deleted from the chart) 12:09 12:09 D50W IVP 50 ml IVP in left antecubital ph ph
--- NOTE | 2024-08-08 14:22 | P.HP ---
Certification for Inpatient Patient admitted to: Inpatient With expected LOS: >2 Midnights Patient will require the following post-hospital care: None Practitioner: I am a practitioner with admitting privileges, knowledge of patient current condition, hospital course, and medical plan of care. Services: Services provided to patient in accordance with Admission requirements found in Title 42 Section 412.3 of the Code of Federal Regulations <Millie Ahmadi - Last Filed: 08/08/24 17:48> Patient History Date of Service: 08/08/24 Reason for admission: Altered mental status secondary to hypoglycemia History of Present Illness: Abril Christopher is a 69-year-old female with past medical history of brain aneurysm, bronchitis, cervical cancer, COPD, CVA with residual left arm weakness, diabetes mellitus, hypercholesterolemia, hypertension, kidney disease, TIA who presents to the ED with chief complaint of low blood sugar. She reports taking 40 units of Lantus and hardly eating afterwards. Her normal routine is to take the lantus then drink coffee which she did not have available. She reports waking up in the ED, not realizing how she arrived. Upon arrival glucose is 36/31 recheck, WBC 17.5, chest x-ray showing a mild central interstitial prominence suggestive of central congestion or early CHF. Initial vital stable, CT head and cervical spine negative for acute intracranial abnormality, Incidentally noted lobulated right apical 7-8 mm nodule. Of note: she lives with two daughters at home. Laboratory evaluation significant for BUN/creatinine 17/1.13, GFR 53, serum glucose 36, potassium 3.3, WBC 17.5 CT head/cervical spine reports "No evidence of acute intracranial abnormality. Stable chronic appearing encephalomalacia suggesting sequelae of remote ischemia. 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 No evidence of acute osseous abnormality of the cervical spine. Incidentally noted lobulated right apical 7-8 mm nodule, for which a follow-up CT chest in 6 months is recommended to ensure stability." CT abd/pelvis reports "No acute or significant abnormalities in the chest, abdomen, or pelvis, : Lower anterior abdominal wall multiloculated hernia measuring 7 cm in greatest transverse diameter. Diastases recti. Chest xray reports mild central interstitial prominence suggestive of central congestion or early CHF Abril will be admitted to hospitalist service for further evaluation and treatment of hypoglycemia. - Past Medical/Surgical History -: Brain aneurysm -: Bronchitis -: Cervical cancer -: Hypercholesterolemia -: Hypertension -: Diabetes mellitus-IDDM -: CVA with residual left arm weakness -: TIA -: Coronary stent - Family History Father -: Cancer Mother -: Heart disease, Lung disease - Social History Smoking Status: Current every day smoker Alcohol use: No CD- Drugs: No <Millie Ahmadi - Last Filed: 08/08/24 17:48> Date of Service: 08/09/24 <TANK Lemons - Last Filed: 08/09/24 06:06> Allergies codeine Allergy (Verified 09/16/19 10:53) Unknown Latex, Natural Rubber Adverse Reaction (Verified 09/16/19 10:53) Rash Home Medications: ALPRAZolam [Xanax] 1 mg PO BEDTIME 09/08/17 Albuterol Sulfate [Proair Hfa] 8.5 gm IH Q6HP PRN 09/08/17 Atorvastatin Calcium [Lipitor] 40 mg PO BEDTIME 09/08/17 Budesonide/Formoterol Fumarate [Symbicort 160-4.5 Mcg Inhaler] 2 puff IH BID 09/08/17 Cholecalciferol (Vitamin D3) [Vitamin D3] 1,000 unit PO DAILY 09/08/17 Clopidogrel Bisulfate [Plavix] 75 mg PO DAILY 09/08/17 Ferrous Fumarate/Vit Bcomp&C [Super B-Complex Caplet] 1 each PO DAILY 09/08/17 Insulin Glargine,Hum.rec.anlog [Lantus Solostar] 39 unit SQ DAILY 09/08/17 Krill/[place]-3/Dha/Epa/Lipids [Krill Oil 300 mg Softgel] 1 each PO DAILY 09/08/17 Magnesium Oxide [Magnesium] 200 mg PO DAILY 09/08/17 Multivitamin [Multivitamins] 1 each PO DAILY 09/08/17 lisinopriL [Prinivil] 20 mg PO BID 09/08/17 Aspirin [Aspirin EC 81 MG] 81 mg PO DAILY 08/08/24 Ezetimibe [Zetia] 10 mg PO DAILY 08/08/24 Mirabegron [Myrbetriq] 25 mg PO BEDTIME 08/08/24 Review of Systems 10-point ROS is otherwise unremarkable <Millie Ahmadi - Last Filed: 08/08/24 17:48> Physical Examination - Physical Exam General: Alert, In no apparent distress, Oriented x3 HEENT: Atraumatic, Normocephalic, PERRLA Neck: Supple, 2+ carotid pulse no bruit, JVD not distended Respiratory: Clear to auscultation bilaterally, Normal air movement Cardiovascular: No edema, Normal pulses, Regular rate/rhythm, Normal S1 S2 Capillary refill: <2 Seconds Gastrointestinal: Normal bowel sounds, Hypoactive, Soft and benign Musculoskeletal: No clubbing Integumentary: No rashes - Studies Laboratory Data (last 24 hrs) 08/08/24 08/08/24 08/08/24 12:00 12:00 12:00 WBC 17.50 H Hgb 12.3 Hct 38.3 Plt Count 405 PT 10.2 INR 0.91 Sodium 140 Potassium 3.3 L BUN 17 Creatinine 1.13 H Glucose 36 L* Magnesium 2.4 Total Bilirubin 0.4 AST 18 ALT 26 Alkaline Phosphatase 99 Lipase 48 <Millie Ahmadi - Last Filed: 08/08/24 17:48> - Studies Laboratory Data (last 24 hrs) 08/08/24 08/08/24 08/08/24 12:00 12:00 12:00 WBC 17.50 H Hgb 12.3 Hct 38.3 Plt Count 405 PT 10.2 INR 0.91 Sodium 140 Potassium 3.3 L BUN 17 Creatinine 1.13 H Glucose 36 L* Magnesium 2.4 Total Bilirubin 0.4 AST 18 ALT 26 Alkaline Phosphatase 99 Lipase 48 <TANK Lemons - Last Filed: 08/09/24 06:06> Assessment and Plan - Plan Assessment and Plan AMS 2/2 hypoglycemia -hypoglycemic protocol, D50W, glucagon PRN -Q1Hr ACHS then back to ACHS when glucose is above 200 -D5 0.045 NS IVF, will stop when glucose is greater than 200 -Hold diabetes medications until blood glucose is greater than 200 -Regular diet -Once glucose is above 200, will turn off fluids and start sliding scale insulin UTI Leukocytosis -WBC 17.5, UA with yeast and 500 leukocyte esterase -Rocephin -follow blood and urine cultures -gentle IVF Diabetes mellitus with CKD -BUN/creatinine 17/1.13, GFR 53 -Gentle IVF Hypokalemia -K 3.3 -Replace PRN -monitor in AM labs Lobutalted right lung nodule -CT head and cervical spine negative for acute intracranial abnormality, Incidentally noted lobulated right apical 7-8 mm nodule. 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
--- NOTE | 2024-08-08 14:24 | RAD REPORT ---
EXAMINATION: ONE VIEW CHEST XR CLINICAL INDICATION: Female, 69 years old.,COUGH TECHNIQUE: Frontal chest projection is submitted. Examination is limited by patient positioning and t echnique. COMPARISON: 03/18/2021 FINDINGS: The lungs are well inflated and clear of focal airspace opacities. Mild central interstitial prominen ce. No pneumothorax or sizable effusion. The heart is upper limit of normal in size. Mediastinal contours are unremarkable. IMPRESSION: Mild central interstitial prominence, may suggest central congestion or early CHF.
[2024-08-08] MEDS ORDERED: CEFTRIAXONE 1000 MG/VIAL ONE (14:34)
[2024-08-08] MEDS ORDERED: NA CHLORIDE 0.9% 50 ML ONE (14:35)
[2024-08-08 14:50] LABS: Specific Gravity 1.013 (1.005-1.030); Sqamous Epithelial <5 /HPF (None Seen); Urine Bacteria <20 /HPF (<20); Urine Bilirubin NEGATIVE (Negative); Urine Blood Negative (Negative); Urine Clarity Extremely Turbid (Clear); Urine Color Yellow (Yellow); Urine Crystals Unidentified Few /HPF (None Seen); Urine Culture Reflex Order REFLEXED; Urine Glucose NEGATIVE (Negative); Urine Ketones NEGATIVE (Negative); Urine Microscopic Reflex YN ORDER UMIC; Urine Mucus Slight /HPF (None Seen); Urine Nitrite NEGATIVE (Negative); Urine Protein TRACE (Negative); Urine RBC <5 /HPF (None Seen); Urine Urobilinogen Normal (Normal); Urine WBC 20-50 /HPF (<5); Urine WBC Clump Occasional /HPF (None Seen); Urine Yeast (Budding) Occasional /HPF (None Seen); Urine pH 6.5 (5.0-7.0)
[2024-08-08] MEDS ORDERED: ACETAMINOPHEN 325 MG TABLET PO PRN (14:56)
[2024-08-08] MEDS ORDERED: D5 0.45 NS 1,000 ML IV SCH (15:00)
[2024-08-08] MEDS ORDERED: GLUCAGON 1 MG/VIAL IV PRN (15:01)
[2024-08-08] MEDS ORDERED: D50W 25 GM/50 ML SYRINGE IV PRN (15:01)
[2024-08-08 16:45] VITALS: O2SAT 98
[2024-08-08 17:17] VITALS: BMI 26.4
[2024-08-08] MEDS: HEPARIN 5000 UNIT/ML 1 ML VIAL SQ SCH (17:42)
[2024-08-08] MEDS: POTASSIUM CL SA 10 MEQ TAB PO ONE (18:25)
[2024-08-08] MEDS: INSULIN REGULAR (HUMAN) 100 UNIT/ML SQ SCH (21:01)
[2024-08-08] MEDS ORDERED: IPRATROPIUM BROM 0.5MG/2.5ML NEB PRN (23:33)
[2024-08-08] MEDS ORDERED: ALBUTEROL 2.5 MG/3 ML NEB SOL NEB PRN (23:33)
[2024-08-09] MEDS: MELATONIN 5 MG TABLET PO PRN (00:02)
[2024-08-09 06:09] LABS: Absolute Eosinophils 0.1 K/uL (0-0.5); Absolute Lymphocytes (CBC) 1.3 K/uL (0.7-4.9); Absolute Monocytes 0.7 K/uL (0.1-1.3); Absolute Neutrophil 4.1 K/uL (1.8-8.0); Basophils % 0.7 % (0-1.3); Eosinophils % 1.5 % (0-4.4); Hematocrit 32.2 % (36.0-45.0); Hemoglobin 11.1 g/dL (12.0-15.0); Lymphocytes % 21.1 % (15.3-44.8); MCHC 34.5 g/dL (32.0-36.0); MCV 101.6 fL (80-100); MPV 7.4 fL (7.6-11.3); Monocytes % 10.7 % (3.3-12.3); Platelets 294 thou/uL (152-406); RBC Red Blood Cell Count 3.17 M/uL (3.86-4.86); Red Cell Distribution Width 12.9 % (12.1-15.2)
[2024-08-09 06:19] LABS: Anion Gap 7.3 mEq/L (5.0-15.0); Magnesium 2.1 mg/dL (1.6-2.4); Phosphorus 3.2 mg/dL (2.5-4.9); Potassium 4.3 mEq/L (3.5-5.1)
[2024-08-09] MEDS: CEFTRIAXONE 1,000 MG in NA CHLORIDE 0.9% 50 ML IVPB SCH (08:38)
[2024-08-09 08:45] VITALS: BP 122/67; TEMP 98
--- NOTE | 2024-08-09 09:10 | P.DS ---
Admission Date: 08/08/24 Discharge Date: 08/09/24 Disposition: ROUTINE DISCHARGE Discharge Condition: GOOD Reason for Admission: Altered mental status secondary to hypoglycemia Brief History of Present Illness: Diagnosis Acute metabolic encephalopathy 2/2 hypoglycemia Severe hypoglycemia UTI Justino Vanginitis Leukocytosis Diabetes mellitus with CKD Hypokalemia Lobutalted right lung nodule HTN Hypercholesterolemia Brain aneurysm Cervical cancer s/p Chemotherapy COPD CVA HPI 08/09/2024 Abril Christopher is a 69-year-old female with past medical history of brain aneurysm, bronchitis, cervical cancer, COPD, CVA with residual left arm weakness, diabetes mellitus, hypercholesterolemia, hypertension, kidney disease, TIA who presents to the ED with chief complaint of low blood sugar. She reports taking 40 units of Lantus and hardly eating afterwards. Her normal routine is to take the lantus then drink coffee which she did not have available. She reports waking up in the ED, not realizing how she arrived. Upon arrival glucose is 36/31 recheck, WBC 17.5, chest x-ray showing a mild central interstitial prominence suggestive of central congestion or early CHF. Initial vital stable, CT head and cervical spine negative for acute intracranial abnormality, Incidentally noted lobulated right apical 7-8 mm nodule. Of note: she lives with two daughters at home. Laboratory evaluation significant for BUN/creatinine 17/1.13, GFR 53, serum glucose 36, potassium 3.3, WBC 17.5 CT head/cervical spine reports "No evidence of acute intracranial abnormality. Stable chronic appearing encephalomalacia suggesting sequelae of remote ischemia. 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 No evidence of acute osseous abnormality of the cervical spine. Incidentally noted lobulated right apical 7-8 mm nodule, for which a follow-up CT chest in 6 months is recommended to ensure stability." CT abd/pelvis reports "No acute or significant abnormalities in the chest, abdomen, or pelvis, : Lower anterior abdominal wall multiloculated hernia measuring 7 cm in greatest transverse diameter. Diastases recti. Chest xray reports mild central interstitial prominence suggestive of central congestion or early CHF Abril will be admitted to hospitalist service for further evaluation and treatment of hypoglycemia. Hospital Course: Abril Christopher is a pleasant 69 year old female with a past medical history significant for brain aneurysm, bronchitis, cervical cancer, COPD, CVA with residual left arm weakness, diabetes mellitus, hypercholesterolemia, hypertensi on, kidney disease, TIA who was admitted to the [facility] on 08/08/2024 for Severe hypoglycemia. Abril presented to the ED with acute encephalopathy with blood glucose of 36. Correction with dextrose IVF and regular diet. Her glucose elevated quickly within a few hours and remained elevated, no significant drop over night. She reports taking 40 units of lantus daily. A1C 6.0, likely overcorrected blood sugar, A1C goal is 7.0, will decrease the Lantus dose to 12 units with a follow up with PCP and an accurate blood glucose records. Educated to check glucose four times daily (with meals and at bedtime) while she is recovering. UA showing budding yeast, she reports a history of thrush. Suspect justino vaginitis with a history of Cervical cancer s/p chemotherapy. Will treat with Monistat vanginally. Kidney function at baseline, potassium WNL, tolerating PO diet, ambulating independently and conversing well. On 08/09/2024, Abril was seen on morning rounds and deemed medically stable for discharge. Abril was discharged with instructions to schedule follow-up appointments with PCP and Dr. Hill. Abril was provided prescriptions for Monistat. Physical Exam General: Alert and Oriented x3, NAD HEENT: Atraumatic, Normocephalic, PERRLA Neck: Supple, 2+ carotid pulse no bruit, JVD not distended Respiratory: Clear to auscultation bilaterally, Normal air movement Cardiovascular: No edema, Normal pulses, RRR, Normal S1 S2 Capillary refill: <2 Seconds Gastrointestinal: Normal bowel sounds, Soft and benign on palpation, nontender Musculoskeletal: No clubbing Integumentary: No rashes Vital Signs/Physical Exam: Temp Pulse Resp BP Pulse Ox 98 F 85 20 122/67 99 08/09/24 08:00 08/09/24 08:00 08/09/24 08:00 08/09/24 08:00 08/09/24 08:00 Laboratory Data at Discharge: WBC 6.20 thou/uL (4.3-10.9) 08/09/24 05:36 Hgb 11.1 g/dL (12.0-15.0) L D 08/09/24 05:36 Hct 32.2 % (36.0-45.0) L 08/09/24 05:36 Plt Count 294 thou/uL (152-406) D 08/09/24 05:36 PT 10.2 SECONDS (9.4-12.5) 08/08/24 12:00 INR 0.91 08/08/24 12:00 Sodium 137 mEq/L (136-145) 08/09/24 05:36 Potassium 4.3 mEq/L (3.5-5.1) D 08/09/24 05:36 BUN 17 mg/dL (7-18) 08/09/24 05:36 Creatinine 1.17 mg/dL (0.55-1.02) H 08/09/24 05:36 Glucose 182 mg/dL (74-106) H 08/09/24 05:36 Phosphorus 3.2 mg/dL (2.5-4.9) 08/09/24 05:36 Magnesium 2.1 mg/dL (1.6-2.4) 08/09/24 05:36 Total Bilirubin 0.4 mg/dL (0.2-1.0) 08/08/24 12:00 AST 18 U/L (15-37) 08/08/24 12:00 ALT 26 U/L (13-56) 08/08/24 12:00 Alkaline Phosphatase 99 U/L (45-117) 08/08/24 12:00 Lipase 48 U/L (13-75) 08/08/24 12:00 Home Medications: ALPRAZolam [Xanax*] 1 mg PO BEDTIME 09/08/17 Albuterol Sulfate [Proair Hfa] 8.5 gm IH Q6HP PRN 09/08/17 Atorvastatin Calcium [Lipitor] 40 mg PO BEDTIME 09/08/17 Budesonide/Formoterol Fumarate [Symbicort 160-4.5 Mcg Inhaler] 2 puff IH BID 09/08/17 Cholecalciferol (Vitamin D3) [Vitamin D3] 1,000 unit PO DAILY 09/08/17 Clopidogrel Bisulfate [Plavix*] 75 mg PO DAILY 09/08/17 Ferrous Fumarate/Vit Bcomp&C [Super B-Complex Caplet] 1 each PO DAILY 09/08/17 Insulin Glargine,Hum.rec.anlog [Lantus Solostar] 39 unit SQ DAILY 09/08/17 Krill/[place]-3/Dha/Epa/Lipids [Krill Oil 300 mg Softgel] 1 each PO DAILY 09/08/17 Magnesium Oxide [Magnesium] 200 mg PO DAILY 09/08/17 Multivitamin [Multivitamins] 1 each PO DAILY 09/08/17 lisinopriL [Prinivil*] 20 mg PO BID 09/08/17 Aspirin [Aspirin EC 81 MG] 81 mg PO DAILY 08/08/24 Ezetimibe [Zetia*] 10 mg PO DAILY 08/08/24 Mirabegron [Myrbetriq] 25 mg PO BEDTIME 08/08/24 Miconazole [Monistat-7 2% Vaginal Cream] 7 appl VG DAILY 7 Days #1 packet 08/09/24 New Medications: Miconazole [Monistat-7 2% Vaginal Cream] 7 appl VG DAILY 7 Days #1 packet Physician Discharge Instructions: Abril presented to the hospital with altered mental status, glucose 36, treated and corrected serum glucose now greater than 200. A1c 6, overcorrected with Lantus at 40 units daily. Lowering Lantus to 12 units daily. Continue to check glucose 3 times daily before meals and once before bed to keep accurate records for your doctor. Urine specimen showing budding yeast. Suspect Justino vaginitis and will treat with Monistat vaginally. 1. Please call and schedule a follow-up appointment with your PCP in 3-5 days - Please follow-up with your PCP for medication refills/adjustments -A1c is 6, overcorrected with Lantus, lowering Lantus to 12 units daily -Continue to check blood glucose 3 times daily before meals and once before bed, keep records for your doctor 2. Please call and schedule a follow-up appointment with Dr. Hill in one week 3. Continue diabetic diet 4. No activity restrictions 5. Return to the ED if symptoms worsen New medications Monistat vaginal cream, instill cream once daily x 7 days Change medication Lantus 12 units daily, remember to eat after taking your Lantus dose. Followup: Yo Page MD [Primary Care Provider] - Arden Hill DO [ACTIVE - CAN ADMIT] -
== END 2024-08-09 10:58 | disposition home or self-care (01) ==
LOC: ER 11:54 → ERHOLD 14:56 → 4TH 16:03
PROVIDERS: ADMIT Internal Medicine; ATTEND Internal Medicine
DX: E11.649 Type 2 diabetes mellitus with hypoglycemia without coma (principal); G93.41 Metabolic encephalopathy; R41.82 Altered mental status, unspecified; J44.9 Chronic obstructive pulmonary disease, unspecified; C53.9 Malignant neoplasm of cervix uteri, unspecified; I69.354 Hemiplegia and hemiparesis following cerebral infarction affecting left non-dominant side; N39.0 Urinary tract infection, site not specified; D72.829 Elevated white blood cell count, unspecified; E87.6 Hypokalemia; R91.1 Solitary pulmonary nodule; B37.31 Acute candidiasis of vulva and vagina
CPT/HCPCS: 96365; 96361; 87040 ×2; 87088; 85025 ×2; 81001; 87086; 80048 ×2; 36415; 83735 ×2; 84100; 85610; 82947 ×5; 80076; 83605; 83036; 84484 ×3; 83690; 83880; 70450; 71250; 72125; 74176; 71045; 96375; 99285; J1644 ×3; J7060; J0696 ×2; G0378